=== PATIENT | male | born 1980 | race Caucasian/White ===

== ENCOUNTER → 2017-07-18 | Emergency (ER) | payer BC ==
[~2017-07-18] MED LIST: Ativan 2 MG/1 ML VIAL ONE; Lactated Ringers 1,000 ML IV ONE; Sodium Chloride 0.9% 1000 ML 1,000 ML ONE
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
[2017-07-18 20:28] LABS: BASOPHIL % 0.4 % (0.0-0.4); Basophil (Absolute #) 0.03 (0-0.4); Eosinophil % 0.4 % (0.00-5.0); Eosinophil (Absolute #) 0.03 (0-0.5); Granulocyte Absolute (ANC) 5.18 (1.4-6.9); Granulocytes % 75.1 % (36.0-66.0); Hematocrit 40.1 % (42-50); Hemoglobin 13.6 gm/dl (12.5-18.0); Lymphocyte (Absolute #) 1.17 (1.0-4.6); Lymphocytes % 16.9 % (24.0-44.0); Mean Cell Volume 87.2 fl (78-100); Mean Corpuscular Hemoglobin 29.6 pg (26-32); Mean Corpuscular Hgb Concent. 33.9 g/dl (32-36); Mean Platelet Volume 8.6 fl (6-9.5); Monocytes % 7.2 % (0.0-12.0); Platelet Count 296 K/mm3 (150-450); Red Cell Distribution Width 14.5 % (11.5-14.0); White Blood Count 6.9 K/mm3 (4.0-10.5)
[2017-07-18 20:46] LABS: ALBUMIN 4.5 g/dL (3.5-5.0); ANION GAP 14.4 MEQ/L (5-15); BILIRUBIN,TOTAL 0.4 mg/dL (0.2-1.3); Calcium 9.1 mg/dL (8.4-10.2); Creatinine 1 1.57 mg/dL (0.66-1.25); Potassium 3.6 mmol/L (3.5-5.1); Total Protein 7.6 g/dL (6.3-8.2)
[2017-07-18 22:06] VITALS: BP 153/73; PULSE 134; O2SAT 97
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
== END | disposition short-term general hospital (02) ==
LOC: ED 19:42
DX: Z86.19 Personal history of other infectious and parasitic diseases (principal); S80.811A Abrasion, right lower leg, initial encounter; Z85.6 Personal history of leukemia; Z86.69 Personal history of other diseases of the nervous system and sense organs; V43.52XA Car driver injured in collision with other type car in traffic accident, initial encounter
CPT/HCPCS: 36000; 36415; 70450; 71045; 72125; 80053; 80177; 82150; 82962; 83690; 85025; 93005; 96360; 96361; 99284; 99285; J2060

== ENCOUNTER 2021-10-19 17:25 | Emergency (ER) | payer BC ==
[2021-10-19] MEDS ORDERED: Sodium Chloride 0.9% 1000 ML 1,000 ML IV SCH (17:45)
[2021-10-19] MEDS ORDERED: Sodium Chloride 0.9% 1000 ML 1,000 ML ONE (17:51)
[2021-10-19 17:54] LABS: Absolute Neutrophil Ct (ANC) 2.52 x10^3/uL (1.4-6.9); Basophil (Absolute #) 0.02 x10^3/uL (0-0.4); Eosinophil % 1.9 % (0.00-5.0); Eosinophil (Absolute #) 0.08 x10^3/uL (0-0.5); Hematocrit 34.6 % (42-50); Hemoglobin 11.8 g/dL (12.5-18.0); Lymphocyte (Absolute #) 1.46 x10^3/uL (1.0-4.6); Lymphocytes % 34.2 % (24.0-44.0); Mean Cell Volume 86.1 fL (78-100); Mean Corpuscular Hemoglobin 29.4 pg (26-32); Mean Corpuscular Hgb Concent. 34.1 g/dL (32-36); Mean Platelet Volume 9.1 fL (7.5-11.0); Monocyte (Absolute #) 0.18 x10^3/uL (0.0-1.3); Monocytes % 4.2 % (0.0-12.0); Platelet Count 218 x10^3/uL (150-450); Red Blood Count 4.02 x10^6/uL (4.1-5.6); Red Cell Distribution Width 13.7 % (11.5-14.0); White Blood Count 4.3 x10^3/uL (4.0-10.5)
[2021-10-19 18:12] LABS: ALBUMIN 4.5 g/dL (3.5-5.0); ALKALINE PHOSPHATASE 59 U/L (38-126); ANION GAP 16.1 MEQ/L (5-15); BLOOD UREA NITROGEN 23 mg/dL (9-20); CHLORIDE 93 mmol/L (98-107); Calcium 8.6 mg/dL (8.4-10.2); Carbon Dioxide 23 mmol/L (22-30); Creatinine 1 1.03 mg/dL (0.66-1.25); EST GLOMERULAR FILTRATION RATE > 60.0 ML/MIN; Glucose 95 mg/dL (74-106); Potassium 4.5 mmol/L (3.5-5.1); SGOT/AST 101 U/L (17-59); SGPT/ALT 45 U/L (0-50); SODIUM 127 mmol/L (137-145); Total Protein 7.6 g/dL (6.3-8.2)
--- NOTE | 2021-10-19 18:31 | ERPHSYRPT ---
- History of Present Illness Time Seen by Provider: 10/19/21 17:40 Patient Subjective Stated Complaint: pt states "I had a seizure at work. 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 His last convulsive seizure was approximately 23 months ago. He did have an absence seizure approximately 10 months ago. During this episode he was noted by his coworkers to have hit his head very h joel. He is not on any blood thinners. In fact his only medication is Keppra at a dose of 1750 twice daily he denies any headache at present. His employer did demand any exam before he returns to work. He is followed by neurologist in [place] at [facility] Timing/Duration: today Severity: severe Character of Deficits: none Baseline/Normal Cognition: alert oriented x 3 Current Cognition: alert oriented x 3 Baseline Gait: walks w/o assistance Associated Symptoms: seizures Allergies/Adverse Reactions: No Known Drug Allergies Allergy (Verified 07/18/17 19:58) Home Medications: Levetiracetam [Keppra 500 mg ] 1,750 mg PO BID 03/14/16 [History] Hx Tetanus, Diphtheria Vaccination/Date Given: Yes Hx Influenza Vaccination/Date Given: Yes Hx Pneumococcal Vaccination/Date Given: No Travel Risk - International Travel Have you traveled outside of the country in past 3 weeks: No - Coronavirus Screening Are you exhibiting any of the following symptoms?: No Close contact with a COVID-19 positive Pt in past 14-21 Days: No - Vaccine Status Have you recieved a Covid-19 vaccination: Yes Public Health Analyst: Moderna - Vaccination Dates Date of 2cond Vaccination (if applicable): 07/08 - Review of Systems Constitutional: No Fever, No Chills Eyes: No Symptoms Ears, Nose, & Throat: No Symptoms Respiratory: No Cough, No Dyspnea Cardiac: No Chest Pain, No Edema, No Syncope Abdominal/Gastrointestinal: No Abdominal Pain, No Nausea, No Vomiting, No Diarrhea Genitourinary Symptoms: No Dysuria Musculoskeletal: No Back Pain, No Neck Pain Skin: No Rash Neurological: Seizure, No Dizziness, No Focal Weakness, No Sensory Changes Psychological: No Symptoms Endocrine: No Symptoms All Other Systems: Reviewed and Negative - Past Medical History Pertinent Past Medical History: Yes Neurological History: Seizures ENT History: No Pertinent History Cardiac History: Other Respiratory History: No Pertinent History Endocrine Medical History: No Pertinent History Musculoskeletal History: No Pertinent History GI Medical History: Hepatitis History: No Pertinent History Psycho-Social History: No Pertinent History Male Reproductive Disorders: No Pertinent History Other Medical History: HEP C, ACUTE LYMPHOCYTIC LEUKEMIA, former kidney problems. lt foot fx - Past Surgical History Past Surgical History: No Neuro Surgical History: Neurological Surgery Other Surgical History: brain tumor removed, central lines placed - Social History Smoking Status: Never smoker Exposure to second hand smoke: No Drug Use: none Patient Lives Alone: No - Nursing Vital Signs Nursing Vital Signs: Initial Vital Signs Temperature 97 F 10/19/21 17:31 Pulse Rate 99 H 10/19/21 17:31 Respiratory Rate 18 10/19/21 17:31 Blood Pressure 135/77 10/19/21 17:31 O2 Sat by Pulse Oximetry 100 10/19/21 17:31 Pain Scale Pain Intensity 0 - Consuelo Coma Scale Best Eye Response (Consuelo): (4) open spontaneously Best Verbal Response (Consuelo): (5) oriented Best Motor Response (Consuelo): (6) obeys commands Strong Total: 15 - Physical Exam General Appearance: no apparent distress, alert Eye Exam: bilateral eye: PERRL, EOMI Ears, Nose, Throat Exam: normal ENT inspection, moist mucous membranes Neck Exam: normal inspection, non-tender, supple Respiratory: normal breath sounds, lungs clear, airway intact, No respiratory distress Cardiovascular: regular rate/rhythm, murmur (There is a pulmonic stenotic murmur upper right sternal border 3/6), No edema Gastrointestinal: soft, No tenderness, No distention Back Exam: normal inspection Extremity Exam: normal inspection, No pedal edema Mental Status: alert, 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 Exam: normal hearing, normal speech, PERRL, tongue midline Coordination/Gait: normal finger to nose, normal gait Motor/Sensory: no motor deficit, no sensory deficit Skin Exam: normal color, warm, dry, No rash SpO2 Interpretation: normal SpO2: 100 O2 Delivery: Room Air - Course Nursing assessment & vital signs reviewed: Yes Ordered Tests: Active Orders 24 hr Category Date Time Status IV Insertion STAT Care 10/19/21 17:33 Active Seizure Precautions -SCCHED STAT Care 10/19/21 17:33 Active HEAD WITHOUT CONTRAST [CT] Stat Exams 10/19/21 17:34 Taken CBC W DIFF Stat Lab 10/19/21 17:40 Completed CMP Stat Lab 10/19/21 17:40 Completed Lactic Acid Stat Lab 10/19/21 17:33 Completed Lactic Acid Stat Lab 10/19/21 19:47 Completed UA W/RFX CULTURE Stat Lab 10/19/21 18:21 Completed Medication Summary Generic Name Dose Route Start Last Admin Trade Name Freq PRN Reason Stop Dose Admin Sodium Chloride 1,000 mls @ 100 mls/hr 10/19/21 17:45 10/19/21 17:52 Sodium Chloride 0.9% 1000 Ml IV 11/18/21 17:44 100 mls/hr .Q10H MAMIE Administration Discontinued Medications Generic Name Dose Route Start Last Admin Trade Name Freq PRN Reason Stop Dose Admin Levetiracetam 1,000 mg/ 110 mls @ 220 mls/hr 10/19/21 19:17 10/19/21 19:27 Dextrose IV 10/19/21 19:46 220 mls/hr STAT ONE Administration Levetiracetam 1,750 mg/ 117.5 mls @ 220 mls/hr 10/19/21 19:19 10/19/21 19:26 Dextrose IV 10/19/21 19:51 Not Given STAT ONE Sodium Chloride Confirm 10/19/21 19:21 Sodium Chloride 0.9% Administered 10/19/21 19:22 Dose 100 mls @ ud .ROUTE .STK-MED ONE Dextrose Confirm 10/19/21 19:23 D5w 100ml Mini Bag 100 Ml Administered 10/19/21 19:24 Dose 100 mls @ ud IV .STK-MED ONE Levetiracetam 750 mg/ Dextrose 107.5 mls @ 400 mls/hr 10/19/21 19:35 10/19/21 19:51 IV 10/19/21 19:51 400 mls/hr STAT ONE Administration Dextrose Confirm 10/19/21 19:37 D5w 100ml Mini Bag 100 Ml Administered 10/19/21 19:38 Dose 100 mls @ ud IV .STK-MED ONE Levetiracetam Confirm 10/19/21 19:20 Levetiracetam 500 Mg/5 Ml Vial Administered 10/19/21 19:21 Dose 1,000 mg .ROUTE .STK-MED ONE Levetiracetam Confirm 10/19/21 19:37 Levetiracetam 500 Mg/5 Ml Vial Administered 10/19/21 19:38 Dose 1,000 mg .ROUTE .STK-MED ONE Lorazepam 1 mg 10/19/21 19:06 10/19/21 19:14 Lorazepam 2 Mg/1 Ml 2 Mg Vial IV 10/19/21 19:07 1 mg STAT ONE Administration Lorazepam Confirm 10/19/21 19:06 Lorazepam 2 Mg/1 Ml 2 Mg Vial Administered 10/19/21 19:07 Dose 2 mg .ROUTE .STK-MED ONE Lab/Rad Data: Laboratory Result Diagrams 10/19/21 17:40 10/19/21 17:40 Laboratory Results 10/19/21 10/19/21 10/19/21 Range/Units 19:47 18:21 17:40 WBC (4.0-10.5) x10^3/uL RBC (4.1-5.6) x10^6/uL Hgb (12.5-18.0) g/dL Hct (42-50) % MCV (78-100) fL MCH (26-32) pg MCHC (32-36) g/dL RDW (11.5-14.0) % Plt Count (150-450) x10^3/uL MPV (7.5-11.0) fL Gran % (36.0-66.0) % Immature Gran % (Auto) (0.00-0.4) % Nucleat RBC Rel Count (0.00-0.1) % Eos # (Auto) (0-0.5) x10^3/uL Immature Gran # (Auto) (0.00-0.03) x10^3u/L Absolute Lymphs (auto) (1.0-4.6) x10^3/uL Absolute Monos (auto) (0.0-1.3) x10^3/uL Absolute Nucleated RBC (0.00-0.01) x10^3u/L Lymphocytes % (24.0-44.0) % Monocytes % (0.0-12.0) % Eosinophils % (0.00-5.0) % Basophils % (0.0-0.4) % Absolute Granulocytes (1.4-6.9) x10^3/uL Basophils # (0-0.4) x10^3/uL Sodium 127 L (137-145) mmol/L Potassium 4.5 (3.5-5.1) mmol/L Chloride 93 L (98-107) mmol/L Carbon Dioxide 23 (22-30) mmol/L Anion Gap 16.1 H (5-15) MEQ/L BUN 23 H (9-20) mg/dL Creatinine 1.03 (0.66-1.25) mg/dL Estimated GFR > 60.0 ML/MIN Glucose 95 (74-106) mg/dL Lactic Acid 5.1 H (0.4-2.0) Calcium 8.6 (8.4-10.2) mg/dL Total Bilirubin 0.70 (0.2-1.3) mg/dL AST 101 H (17-59) U/L ALT 45 (0-50) U/L Alkaline Phosphatase 59 (38-126) U/L Serum Total Protein 7.6 (6.3-8.2) g/dL Albumin 4.5 (3.5-5.0) g/dL Urinalys Dipstick Clnc MAIN LAB Urine Color YELLOW (YELLOW) Urine Appearance CLEAR (CLEAR) Urine pH 7.0 (5-6) Ur Specific [place] 1.025 (1.005-1.025) POC Urine Protein Conf NEGATIVE (Negative) Urine Ketones NEGATIVE (NEGATIVE) Urine Nitrite NEGATIVE (NEGATIVE) Urine Bilirubin NEGATIVE (NEGATIVE) Urine Urobilinogen 0.2 (0-1) mg/dL Urine Leukocytes NEGATIVE (NEGATIVE) Urine WBC (Auto) NONE (0-5) /HPF Urine RBC (Auto) NONE (0-2) /HPF U Epithel Cells (Auto) NONE (FEW) /HPF Urine Bacteria (Auto) NONE (NEGATIVE) /HPF Urine RBC TRACE-INTACT (0-5) Marcus/ul Ur Culture Indicated? NO Urine Glucose NEGATIVE (NEGATIVE) mg/dL 10/19/21 10/19/21 Range/Units 17:40 17:33 WBC 4.3 (4.0-10.5) x10^3/uL RBC 4.02 L (4.1-5.6) x10^6/uL Hgb 11.8 L (12.5-18.0) g/dL Hct 34.6 L (42-50) % MCV 86.1 (78-100) fL MCH 29.4 (26-32) pg MCHC 34.1 (32-36) g/dL RDW 13.7 (11.5-14.0) % Plt Count 218 (150-450) x10^3/uL MPV 9.1 (7.5-11.0) fL Gran % 59.0 (36.0-66.0) % Immature Gran % (Auto) 0.2 (0.00-0.4) % Nucleat RBC Rel Count 0.0 (0.00-0.1) % Eos # (Auto) 0.08 (0-0.5) x10^3/uL Immature Gran # (Auto) 0.01 (0.00-0.03) x10^3u/L Absolute Lymphs (auto) 1.46 (1.0-4.6) x10^3/uL Absolute Monos (auto) 0.18 (0.0-1.3) x10^3/uL Absolute Nucleated RBC 0.00 (0.00-0.01) x10^3u/L Lymphocytes % 34.2 (24.0-44.0) % Monocytes % 4.2 (0.0-12.0) % Eosinophils % 1.9 (0.00-5.0) % Basophils % 0.5 (0.0-0.4) % Absolute Granulocytes 2.52 (1.4-6.9) x10^3/uL Basophils # 0.02 (0-0.4) x10^3/uL Sodium (137-145) mmol/L Potassium (3.5-5.1) mmol/L Chloride (98-107) mmol/L Carbon Dioxide (22-30) mmol/L Anion Gap (5-15) MEQ/L BUN (9-20) mg/dL Creatinine (0.66-1.25) mg/dL Estimated GFR ML/MIN Glucose (74-106) mg/dL Lactic Acid 2.3 H (0.4-2.0) Calcium (8.4-10.2) mg/dL Total Bilirubin (0.2-1.3) mg/dL AST (17-59) U/L ALT (0-50) U/L Alkaline Phosphatase (38-126) U/L Serum Total Protein (6.3-8.2) g/dL Albumin (3.5-5.0) g/dL Urinalys Dipstick Clnc Urine Color (YELLOW) Urine Appearance (CLEAR) Urine pH (5-6) Ur Specific [place] (1.005-1.025) POC Urine Protein Conf (Negative) Urine Ketones (NEGATIVE) Urine Nitrite (NEGATIVE) Urine Bilirubin (NEGATIVE) Urine Urobilinogen (0-1) mg/dL Urine Leukocytes (NEGATIVE) Urine WBC (Auto) (0-5) /HPF Urine RBC (Auto) (0-2) /HPF U Epithel Cells (Auto) (FEW) /HPF Urine Bacteria (Auto) (NEGATIVE) /HPF Urine RBC (0-5) Marcus/ul Ur Culture Indicated? Urine Glucose (NEGATIVE) mg/dL - Progress Progress: improved Progress Note: 10/19/21 21:19 Patient presented after a seizure at work and initially was doing well here in the ER and then had another grand mal seizure which lasted for several minutes. He was treated for that with Ativan at and was given 2 g of Keppra IV this evening. We did call Tati Finn the resident on-call for neurology at [facility] and she reviewed his chart and recommended the increase in his dose of Keppra to 2 g twice a day and she will discuss that with Dr. Goff tomorrow. - Departure Departure Disposition: Home Clinical Impression: Seizure disorder Condition: Stable Critical Care Time: No Referrals: MELITA CRAWFORD NP [Primary Care Provider] - Follow up/PCP as directed Instructions: Seizures, Adult (DC) Additional Instructions: Increase the daily Keppra dose to 2 g twice a day
[2021-10-19] MEDS ORDERED: Ativan 2 MG/1 ML VIAL ONE (19:06)
[2021-10-19] MEDS ORDERED: Ativan 2 MG/1 ML VIAL IV ONE (19:06)
[2021-10-19] MEDS ORDERED: Keppra 500 MG/5 ML*** 1,000 MG in D5w 100ML Mini Bag 100 ML 100 ML IV ONE (19:17)
[2021-10-19] MEDS ORDERED: KEPPRA IV ONE ×3 (19:19→21:26)
[2021-10-19] MEDS ORDERED: D5W MINI IV ONE ×3 (19:19→21:26)
[2021-10-19] MEDS ORDERED: Keppra 500 MG/5 ML ONE ×2 (19:20→19:37)
[2021-10-19] MEDS ORDERED: Sodium Chloride 0.9% 0 ML ONE (19:21)
[2021-10-19] MEDS ORDERED: D5w 100ML Mini Bag 100 ML 100 ML IV ONE ×3 (19:23→21:26)
[2021-10-19 19:42] LABS: Appearance CLEAR (CLEAR)
[2021-10-19 19:43] LABS: Bilirubin NEGATIVE (NEGATIVE); Dipstick done @ ? MAIN LAB; Glucose NEGATIVE (NEGATIVE); Ketones NEGATIVE (NEGATIVE); Nitrite NEGATIVE (NEGATIVE); Protein,Urine Dip NEGATIVE (Negative); RBC TRACE-INTACT Ery/ul (0-5); Specific Gravity 1.025 (1.005-1.025); Urobilinogen 0.2 mg/dL (0-1)
[2021-10-19 19:48] LABS: Urine Cultured Indicated? NO
[2021-10-19] MEDS ORDERED: Keppra 250 MG ONE (21:25)
[2021-10-19 22:16] VITALS: BP 126/84; PULSE 92; O2SAT 98
--- NOTE | 2021-10-20 08:42 | XRAY ---
Indication: Head injury. Seizure. Benign brain tumors 2016 with surgery. Multiple contiguous axial images obtained through the head without contrast. Comparison: July 18, 2017 There has been additional interval right temporal craniectomy with increasing underlying temporal lobe postsurgical encephalomalacia. Stable right parietal craniotomy. No acute intracranial hemorrhage, hydrocephalus, or mass effect. Fourth ventricle is midline. [place]-white matter differentiation preserved. Remaining bony calvarium intact. Visualized paranasal sinuses and mastoid air cells are clear. Impression: Right temporal craniectomy with underlying encephalomalacia and right parietal craniotomy. No acute intracranial abnormalities.
== END 2021-10-19 22:15 | disposition home or self-care (01) ==
LOC: ED 17:25
DX: G40.909 Epilepsy, unspecified, not intractable, without status epilepticus (principal); Z79.899 Other long term (current) drug therapy
CPT/HCPCS: 36000; 36415; 70450; 80053; 80177; 81015; 83605; 84146; 85025; 96374; 96375; 96376; 99284; J1953; J2060; A9270-GY

== ENCOUNTER 2022-04-06 22:35 | Observation (INO) | payer BC ==
[2022-04-06] MEDS ORDERED: Hydromorphone 1 mg/ml Injection IV ONE (22:45)
[2022-04-06] MEDS ORDERED: Zofran 4 MG/2 ML VIAL IV ONE (22:46)
[2022-04-06] MEDS ORDERED: Zofran 4 MG/2 ML VIAL ONE (22:49)
[2022-04-06] MEDS ORDERED: Hydromorphone 1 mg/ml Injection ONE (22:50)
--- NOTE | 2022-04-06 23:23 | ERPHSYRPT ---
- History of Present Illness Historian: patient, other () Exam Limitations: no limitations Patient Subjective Stated Complaint: pt states I have had this pain for the past 4 hours. I get relief if I lay on my left side Triage Nursing Assessment: pt ambulated into the er; pt is axo x4; pt is moaning and yelling out; c/o epigastric pain; pt states 5/10 pain to epigastric region; abd is soft, tender; active bowel sounds in all quads; tachycardic; skin PDW; no respiratory distress present Physician History: 41 yo wf w generalized abdominal pain since 18:30 today after eating [place] food. Pain is described as pressure, 7 out of 10, and L lateral decubitus position makes it better. He denies nausea/vomiting/diaphoresis but was dyspneic. He and his had diarrhea on Monday which seemed to resolve. Fever/cough/melena/hematochezia/dysuria/hematuria are all denied. Appendix/gallbladder are still present. 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 Pt has also had meningioma resection x2. Timing/Duration: other (183) Quality: pressure Abdominal Pain Onset Location: generalized abdomen Pain Radiation: no radiation Severity of Pain-Max: severe Severity of Pain-Current: moderate Modifying Factors: Improves With: nothing Associated Symptoms: denies symptoms Previous symptoms: no prior history Allergies/Adverse Reactions: azithromycin [From Zithromax Z-Uday] Allergy (Verified 04/06/22 22:37) Hives lamotrigine [From Lamictal] Allergy (Verified 04/07/22 02:53) Rash Home Medications: Levetiracetam [Keppra 500 mg ] 2,000 mg PO BID 03/14/16 [History] Testosterone 1.62 gm TD DAILY 04/07/22 [History] Hx Tetanus, Diphtheria Vaccination/Date Given: Yes Hx Influenza Vaccination/Date Given: No Hx Pneumococcal Vaccination/Date Given: No Travel Risk - International Travel Have you traveled outside of the country in past 3 weeks: No - Coronavirus Screening Are you exhibiting any of the following symptoms?: No Close contact with a COVID-19 positive Pt in past 14-21 Days: No - Vaccine Status Have you recieved a Covid-19 vaccination: Yes Acid Patroller: Moderna - Vaccination Dates Date of 2cond Vaccination (if applicable): 07/08 - Review of Systems Constitutional: No Symptoms Eyes: No Symptoms Ears, Nose, & Throat: No Symptoms Respiratory: No Symptoms Cardiac: No Symptoms Abdominal/Gastrointestinal: No Symptoms, Abdominal Pain, No Nausea, No Vomiting, No Diarrhea, No Constipation, No Hematemesis, No Hematochezia, No Melena, No Dysphagia, No Appetite Changes Genitourinary Symptoms: No Symptoms Musculoskeletal: No Symptoms Skin: No Symptoms Neurological: No Symptoms Psychological: No Symptoms Endocrine: No Symptoms Hematologic/Lymphatic: No Symptoms Immunological/Allergic: No Symptoms - Past Medical History Pertinent Past Medical History: Yes Neurological History: Seizures ENT History: No Pertinent History Cardiac History: Other Respiratory History: No Pertinent History Endocrine Medical History: No Pertinent History Musculoskeletal History: No Pertinent History GI Medical History: Hepatitis History: No Pertinent History Psycho-Social History: No Pertinent History Male Reproductive Disorders: No Pertinent History Other Medical History: HEP C, ACUTE LYMPHOCYTIC LEUKEMIA, former kidney problems. lt foot fx - Past Surgical History Past Surgical History: No Neuro Surgical History: Neurological Surgery Other Surgical History: brain tumor removed, central lines placed - Social History Smoking Status: Never smoker Exposure to second hand smoke: No Drug Use: none Patient Lives Alone: No Significant Family History: no pertinent family hx - Nursing Vital Signs Nursing Vital Signs: Initial Vital Signs Pulse Rate 116 H 04/06/22 22:36 Respiratory Rate 24 04/06/22 22:36 Blood Pressure 113/88 04/06/22 22:36 O2 Sat by Pulse Oximetry 100 04/06/22 22:36 Pain Scale Pain Intensity 2 Tachy/tachypneic - Physical Exam General Appearance: no apparent distress (In pain) Eye Exam: PERRL/EOMI, eyes nml inspection Ears, Nose, Throat Exam: normal ENT inspection, TMs normal, pharynx normal, moist mucous membranes Neck Exam: normal inspection, non-tender, supple, full range of motion, No meningismus, No mass, No Brudzinski, No Kernig's Respiratory Exam: normal breath sounds, lungs clear, airway intact, No respiratory distress Cardiovascular Exam: murmur (3/6 SOFYA), tachycardia, capillary refill <2 sec Gastrointestinal/Abdomen Exam: soft, normal bowel sounds, tenderness (Marked epigastric TTP wo guarding or rebound) Back Exam: normal inspection, normal range of motion, No CVA tenderness Extremity Exam: normal inspection, normal range of motion Neurologic Exam: alert, oriented x 3, cooperative, support assistant II-XII nml as tested, normal mood/affect, nml cerebellar function, nml station & gait, sensation nml Skin Exam: normal color, warm, dry Lymphatic Exam: No adenopathy SpO2 Interpretation: normal SpO2: 100 O2 Delivery: Room Air - Course Nursing assessment & vital signs reviewed: Yes EKG Interpreted by Me: RATE (Sinus tach/Rate 118/RBBB/No acute ST segment changes) - Radiology Exams Chest X-ray Interpretation: Interpreted by me (CXR neg per ER read) - CT Exams Abdomen/Pelvis CT Interpretation: Tele-radiologist Report (Mild periportal edema) Ordered Tests: Active Orders 24 hr Category Date Time Status Senior Data Mining Analyst STAT Care 04/06/22 22:52 Completed EKG-ER Only STAT Care 04/06/22 22:43 Completed IV Insertion STAT Care 04/06/22 22:43 Completed NPO Diet 04/07/22 02:01 Active ABDOMEN AND PELVIS W CONTRAST [CT] Stat Exams 04/07/22 00:06 Taken CHEST 1 VIEW (PORTABLE) Stat Exams 04/06/22 23:28 Taken GALLBLADDER [US] Stat Exams 04/07/22 07:04 Stop Req AMYLASE Stat Lab 04/06/22 23:25 Completed CBC W DIFF AM.LAB Lab 04/07/22 04:00 Ordered CBC W DIFF Stat Lab 04/06/22 23:25 Completed CMP AM.LAB Lab 04/07/22 04:00 Ordered CMP Stat Lab 04/06/22 23:25 Completed CULTURE,URINE Stat Lab 04/07/22 01:49 Received LIPASE Stat Lab 04/06/22 23:25 Completed TROPONIN Q4H Lab 04/06/22 23:25 Completed TROPONIN Q4H Lab 04/07/22 00:05 Completed TROPONIN Q4H Lab 04/07/22 06:45 Ordered UA W/RFX UR CULTURE Stat Lab 04/07/22 01:49 Completed Transfer Order Routine Transfer 04/07/22 Completed Medication Summary Generic Name Dose Route Start Last Admin Trade Name Freq PRN Reason Stop Dose Admin Hydromorphone HCl 1 mg 04/07/22 02:00 Hydromorphone 1 Mg/1ml Inj 1 Mg/Ml Syringe IV 04/12/22 01:59 Q4H PRN PRN PAIN Sodium Chloride 1,000 mls @ 100 mls/hr 04/07/22 02:00 04/07/22 03:09 Sodium Chloride 0.9% 1000 Ml IV 05/07/22 01:59 100 mls/hr .Q10H MAMIE Administration Ondansetron HCl 4 mg 04/07/22 02:00 Ondansetron Hcl 4 Mg/2 Ml Vial IV 05/07/22 01:59 Q6H PRN PRN NAUSEA/VOMITING Discontinued Medications Generic Name Dose Route Start Last Admin Trade Name Freq PRN Reason Stop Dose Admin Hydromorphone HCl 1 mg 04/06/22 22:45 04/06/22 22:53 Hydromorphone 1 Mg/1ml Inj 1 Mg/Ml Syringe IV 04/06/22 22:46 1 mg STAT ONE Administration Hydromorphone HCl Confirm 04/06/22 22:50 Hydromorphone 1 Mg/1ml Inj 1 Mg/Ml Syringe Administered 04/06/22 22:51 Dose 1 mg .ROUTE .STK-MED ONE Hydromorphone HCl 1 mg 04/07/22 01:29 04/07/22 01:39 Hydromorphone 1 Mg/1ml Inj 1 Mg/Ml Syringe IV 04/07/22 01:30 1 mg STAT ONE Administration Hydromorphone HCl Confirm 04/07/22 01:37 Hydromorphone 1 Mg/1ml Inj 1 Mg/Ml Syringe Administered 04/07/22 01:38 Dose 1 mg .ROUTE .STK-MED ONE Ondansetron HCl 4 mg 04/06/22 22:46 04/06/22 22:54 Ondansetron Hcl 4 Mg/2 Ml Vial IV 04/06/22 22:47 4 mg STAT ONE Administration Ondansetron HCl Confirm 04/06/22 22:49 Ondansetron Hcl 4 Mg/2 Ml Vial Administered 04/06/22 22:50 Dose 4 mg .ROUTE .STK-MED ONE Lab/Rad Data: Laboratory Result Diagrams 04/06/22 23:25 04/06/22 23:25 Laboratory Results 01/04/07/22 04/06/22 Range/Units 01:49 00:05 23:56 WBC (4.0-10.5) x10^3/uL RBC (4.1-5.6) x10^6/uL Hgb (12.5-18.0) g/dL Hct (42-50) % MCV (78-100) fL MCH (26-32) pg MCHC (32-36) g/dL RDW (11.5-14.0) % Plt Count (150-450) x10^3/uL MPV (7.5-11.0) fL Gran % (36.0-66.0) % Immature Gran % (Auto) (0.00-0.4) % Nucleat RBC Rel Count (0.00-0.1) % Eos # (Auto) (0-0.5) x10^3/uL Immature Gran # (Auto) (0.00-0.03) x10^3u/L Absolute Lymphs (auto) (1.0-4.6) x10^3/uL Absolute Monos (auto) (0.0-1.3) x10^3/uL Absolute Nucleated RBC (0.00-0.01) x10^3u/L Lymphocytes % (24.0-44.0) % Monocytes % (0.0-12.0) % Eosinophils % (0.00-5.0) % Basophils % (0.0-0.4) % Absolute Granulocytes (1.4-6.9) x10^3/uL Basophils # (0-0.4) x10^3/uL Sodium (137-145) mmol/L Potassium (3.5-5.1) mmol/L Chloride (98-107) mmol/L Carbon Dioxide (22-30) mmol/L Anion Gap (5-15) MEQ/L BUN (9-20) mg/dL Creatinine (0.66-1.25) mg/dL Estimated GFR ML/MIN Glucose (74-106) mg/dL Calcium (8.4-10.2) mg/dL Total Bilirubin (0.2-1.3) mg/dL AST (17-59) U/L ALT (0-50) U/L Alkaline Phosphatase (38-126) U/L Troponin I < 0.012 (0.000-0.034) ng/mL Serum Total Protein (6.3-8.2) g/dL Albumin (3.5-5.0) g/dL Amylase (30-110) U/L Lipase (23-300) U/L Urine Color Yellow (Yellow) Urine Appearance Clear (Clear) Urine pH 7.5 (4.6-8.0) Ur Specific [place] >=1.030 A (1.005-1.030) Urine Protein Negative (Negative) Urine Glucose (UA) Negative (Negative) mg/dL Urine Ketones Negative (Negative) Urine Blood Negative (Negative) Urine Nitrite Negative (Negative) Urine Bilirubin Negative (Negative) Urine Urobilinogen 0.2 (0.2) mg/dL Ur Leukocyte Esterase Negative (Negative) U Hyaline Cast (Auto) NONE SEEN (0-2) /LPF Urine Microscopic RBC 3-5 (0-5) /HPF Urine Microscopic WBC 11-20 A (0-5) /HPF Ur Epithelial Cells None Seen (None Seen) /HPF Urine Bacteria None Seen (None Seen) /HPF Urine Culture Reflexed YES (NO) Influenza Type A Ag NEGATIVE (NEGATIVE) Influenza Type B Ag NEGATIVE (NEGATIVE) RSV (PCR) NEGATIVE (Negative) SARS-CoV-2 (PCR) NEGATIVE (NEGATIVE) Slides for Path Review 04/06/22 04/06/22 04/06/22 Range/Units 23:25 23:25 23:25 WBC 6.9 (4.0-10.5) x10^3/uL RBC 4.32 (4.1-5.6) x10^6/uL Hgb 12.4 L (12.5-18.0) g/dL Hct 37.2 L (42-50) % MCV 86.1 (78-100) fL MCH 28.7 (26-32) pg MCHC 33.3 (32-36) g/dL RDW 13.6 (11.5-14.0) % Plt Count 228 (150-450) x10^3/uL MPV 8.8 (7.5-11.0) fL Gran % 88.4 H (36.0-66.0) % Immature Gran % (Auto) 0.3 (0.00-0.4) % Nucleat RBC Rel Count 0.0 (0.00-0.1) % Eos # (Auto) 0.05 (0-0.5) x10^3/uL Immature Gran # (Auto) 0.02 (0.00-0.03) x10^3u/L Absolute Lymphs (auto) 0.53 L (1.0-4.6) x10^3/uL Absolute Monos (auto) 0.18 (0.0-1.3) x10^3/uL Absolute Nucleated RBC 0.00 (0.00-0.01) x10^3u/L Lymphocytes % 7.7 L (24.0-44.0) % Monocytes % 2.6 (0.0-12.0) % Eosinophils % 0.7 (0.00-5.0) % Basophils % 0.3 (0.0-0.4) % Absolute Granulocytes 6.09 (1.4-6.9) x10^3/uL Basophils # 0.02 (0-0.4) x10^3/uL Sodium 137 (137-145) mmol/L Potassium 3.5 (3.5-5.1) mmol/L Chloride 103 (98-107) mmol/L Carbon Dioxide 26 (22-30) mmol/L Anion Gap 11.4 (5-15) MEQ/L BUN 19 (9-20) mg/dL Creatinine 0.76 (0.66-1.25) mg/dL Estimated GFR > 60.0 ML/MIN Glucose 100 (74-106) mg/dL Calcium 8.6 (8.4-10.2) mg/dL Total Bilirubin 0.50 (0.2-1.3) mg/dL AST 209 H (17-59) U/L ALT 87 H (0-50) U/L Alkaline Phosphatase 128 H (38-126) U/L Troponin I < 0.012 (0.000-0.034) ng/mL Serum Total Protein 7.4 (6.3-8.2) g/dL Albumin 4.4 (3.5-5.0) g/dL Amylase 58 (30-110) U/L Lipase 88 (23-300) U/L Urine Color (Yellow) Urine Appearance (Clear) Urine pH (4.6-8.0) Ur Specific [place] (1.005-1.030) Urine Protein (Negative) Urine Glucose (UA) (Negative) mg/dL Urine Ketones (Negative) Urine Blood (Negative) Urine Nitrite (Negative) Urine Bilirubin (Negative) Urine Urobilinogen (0.2) mg/dL Ur Leukocyte Esterase (Negative) U Hyaline Cast (Auto) (0-2) /LPF Urine Microscopic RBC (0-5) /HPF Urine Microscopic WBC (0-5) /HPF Ur Epithelial Cells (None Seen) /HPF Urine Bacteria (None Seen) /HPF Urine Culture Reflexed (NO) Influenza Type A Ag (NEGATIVE) Influenza Type B Ag (NEGATIVE) RSV (PCR) (Negative) SARS-CoV-2 (PCR) (NEGATIVE) Slides for Path Review YES - Progress Progress: improved Progress Note: 04/07/22 03:50 1mg IV dilaudid/4mg IV Zofran w improvement in pain Pain returned and treated effectively w additional 1mg IV dilaudid Pt admitted due to continuing pain and abnormal CT results Dasha-portal edema of unknown etiology Gallbladder WNL on Ct but dedicated US will be obtained Observation per Dr. Link Nursing notes and vital signs reviewed Labs/CT results reviewed and shared w pt/ Additional history per No food or housing insecurities noted Full code upon admit 04/07/22 03:56 Discussed with : Carlos Will see patient in: office Counseled pt/family regarding: lab results, diagnosis, rad results - Departure Departure Disposition: Observation Clinical Impression: Abdominal pain Condition: Stable Critical Care Time: No
[2022-04-06 23:28] LABS: Absolute Neutrophil Ct (ANC) 6.09 x10^3/uL (1.4-6.9); Basophil (Absolute #) 0.02 x10^3/uL (0-0.4); Eosinophil % 0.7 % (0.00-5.0); Eosinophil (Absolute #) 0.05 x10^3/uL (0-0.5); Hematocrit 37.2 % (42-50); Hemoglobin 12.4 g/dL (12.5-18.0); Lymphocyte (Absolute #) 0.53 x10^3/uL (1.0-4.6); Lymphocytes % 7.7 % (24.0-44.0); Mean Cell Volume 86.1 fL (78-100); Mean Corpuscular Hemoglobin 28.7 pg (26-32); Mean Corpuscular Hgb Concent. 33.3 g/dL (32-36); Mean Platelet Volume 8.8 fL (7.5-11.0); Monocyte (Absolute #) 0.18 x10^3/uL (0.0-1.3); Monocytes % 2.6 % (0.0-12.0); Neutrophil % 88.4 % (36.0-66.0); Platelet Count 228 x10^3/uL (150-450); Red Blood Count 4.32 x10^6/uL (4.1-5.6); Red Cell Distribution Width 13.6 % (11.5-14.0); White Blood Count 6.9 x10^3/uL (4.0-10.5)
[2022-04-06 23:41] LABS: ALBUMIN 4.4 g/dL (3.5-5.0); ALKALINE PHOSPHATASE 128 U/L (38-126); AMYLASE 58 U/L (30-110); ANION GAP 11.4 MEQ/L (5-15); BLOOD UREA NITROGEN 19 mg/dL (9-20); CHLORIDE 103 mmol/L (98-107); Calcium 8.6 mg/dL (8.4-10.2); Carbon Dioxide 26 mmol/L (22-30); Creatinine 1 0.76 mg/dL (0.66-1.25); EST GLOMERULAR FILTRATION RATE > 60.0 ML/MIN; Glucose 100 mg/dL (74-106); LIPASE 88 U/L (23-300); Potassium 3.5 mmol/L (3.5-5.1); SGOT/AST 209 U/L (17-59); SGPT/ALT 87 U/L (0-50); SODIUM 137 mmol/L (137-145); Total Protein 7.4 g/dL (6.3-8.2)
[2022-04-07 00:34] LABS: INFLUENZA A NEGATIVE (NEGATIVE); INFLUENZA B NEGATIVE (NEGATIVE); RESPIRATORY SYNCTIAL VIRUS NEGATIVE (Negative); SARS-CoV-2 Xpert Express NEGATIVE (NEGATIVE)
[2022-04-07] MEDS ORDERED: Hydromorphone 1 mg/ml Injection IV ONE (01:29)
[2022-04-07 01:37] LABS: Slide Review 1 YES
[2022-04-07] MEDS ORDERED: Hydromorphone 1 mg/ml Injection ONE (01:37)
[2022-04-07] MEDS ORDERED: Sodium Chloride 0.9% 1000 ML 1,000 ML IV SCH (02:00)
[2022-04-07] MEDS ORDERED: Zofran 4 MG/2 ML VIAL IV PRN (02:00)
[2022-04-07] MEDS ORDERED: Hydromorphone 1 mg/ml Injection IV PRN (02:00)
[2022-04-07 02:07] LABS: Appearance Clear (Clear); Bacteria None Seen /HPF (None Seen); Bilirubin Negative (Negative); Blood Negative (Negative); Epithelial Cells None Seen /HPF (None Seen); Glucose, Urine Negative (Negative); Hyaline Casts NONE SEEN /LPF (0-2); Ketones Negative (Negative); Leukocyte Esterase Negative (Negative); Nitrite Negative (Negative); Ph 7.5 (4.6-8.0); Protein,Urine Dip Negative (Negative); Specific Gravity >=1.030 (1.005-1.030); Urobilinogen 0.2 mg/dL (0.2)
[2022-04-07 02:08] LABS: ADD URINE CULTURE? YES (NO)
[2022-04-07 05:30] LABS: Absolute Neutrophil Ct (ANC) 4.46 x10^3/uL (1.4-6.9); Basophil (Absolute #) 0.03 x10^3/uL (0-0.4); Eosinophil % 0.4 % (0.00-5.0); Eosinophil (Absolute #) 0.02 x10^3/uL (0-0.5); Hematocrit 37.9 % (42-50); Hemoglobin 12.5 g/dL (12.5-18.0); Lymphocyte (Absolute #) 0.65 x10^3/uL (1.0-4.6); Lymphocytes % 11.8 % (24.0-44.0); Mean Cell Volume 85.9 fL (78-100); Mean Corpuscular Hemoglobin 28.3 pg (26-32); Mean Platelet Volume 9.1 fL (7.5-11.0); Monocyte (Absolute #) 0.32 x10^3/uL (0.0-1.3); Monocytes % 5.8 % (0.0-12.0); Neutrophil % 81.3 % (36.0-66.0); Platelet Count 256 x10^3/uL (150-450); Red Blood Count 4.41 x10^6/uL (4.1-5.6); Red Cell Distribution Width 14.2 % (11.5-14.0); White Blood Count 5.5 x10^3/uL (4.0-10.5)
[2022-04-07 06:05] LABS: ALBUMIN 4.3 g/dL (3.5-5.0); ALKALINE PHOSPHATASE 130 U/L (38-126); ANION GAP 11.1 MEQ/L (5-15); BLOOD UREA NITROGEN 15 mg/dL (9-20); CHLORIDE 104 mmol/L (98-107); Calcium 8.1 mg/dL (8.4-10.2); Carbon Dioxide 26 mmol/L (22-30); Creatinine 1 0.74 mg/dL (0.66-1.25); EST GLOMERULAR FILTRATION RATE > 60.0 ML/MIN; Glucose 94 mg/dL (74-106); Potassium 3.9 mmol/L (3.5-5.1); SGOT/AST 224 U/L (17-59); SGPT/ALT 141 U/L (0-50); SODIUM 138 mmol/L (137-145); Total Protein 7.2 g/dL (6.3-8.2)
--- NOTE | 2022-04-07 08:30 | XRAY ---
Indication: Epigastric pain 4 months. Multiple contiguous axial images obtained through the abdomen and pelvis using 80 cc Isovue 370 contrast. Comparison: None Lung bases demonstrates mild left lower lobe subsegmental atelectasis/scarring. Heart not enlarged. Small distal paraesophageal calcified nodes. Noncontrasted stomach and bowel loops appear nonobstructed with normal appendix. Minimal sigmoid diverticulosis without diverticulitis. No free fluid/air. Tiny splenic calcified granulomas. Remaining liver, gallbladder, pancreas, spleen, adrenal glands, kidneys, ureters, bladder, and aorta are normal in CT appearance and attenuation. No pathologic retroperitoneal lymphadenopathy. Osseous structures intact. No ventral or inguinal hernias. Impression: 1. Left lower lobe subsegmental atelectasis/scarring, sigmoid diverticulosis, and old granulomatous disease. 2. Remaining CT abdomen/pelvis with contrast exam is negative. Comment: Preliminary interpretation made by [facility]. No critical discrepancy.
--- NOTE | 2022-04-07 08:32 | XRAY ---
Indication: Epigastric pain. Comparison: July 18, 2017 Portable chest better inflated with new minimal left infrahilar atelectasis/scarring and tiny left lung base calcified granulomas. Remaining heart, lungs, and bony thorax normal.
--- NOTE | 2022-04-07 08:45 | PCM.HP ---
History of Present Illness - Chief Complaint Chief Complaint: ABD PAIN History of Present Illness: is a 41 year old male who presented to the ER with acute onset of epigastric pain, it started quickly after eating [place] food, he had some relief when lying on his left side. his pain has resolved this morning, there was no vomiting, no diarrhea or constipation. he does have some pain and drainage from the right ear. - Review of Systems Constitutional: No Fever, No Chills Ears, Nose, & Throat: Ear Pain Respiratory: No Cough, No Short Of Breath Cardiac: No Chest Pain, No Edema, No Syncope Abdominal/Gastrointestinal: No Abdominal Pain, No Nausea, No Vomiting, No Diarrhea Skin: No Rash Medications & Allergies Home Medications: Home Medication List Levetiracetam [Keppra 500 mg ] 2,000 mg PO BID 03/14/16 [History Confirmed 04/07/22] Testosterone 1.62 gm TD DAILY 04/07/22 [History Confirmed 04/07/22] Allergies/Adverse Reactions: Allergies Allergy/AdvReac Type Severity Reaction Status Date / Time azithromycin Allergy Hives Verified 04/06/22 22:37 [From Zithromax Z-Uday] lamotrigine [From Lamictal] Allergy Rash Verified 04/07/22 02:53 - Past Medical History Past Medical History: Yes Neurological History: Seizures ENT History: No Pertinent History Cardiac History: Other Respiratory History: No Pertinent History Endocrine Medical History: No Pertinent History Musculoskelatal History: No Pertinent History GI Medical History: Hepatitis History: No Pertinent History Pyscho-Social History: No Pertinent History Male Reproductive Disorders: No Pertinent History Comment: HEP C, ACUTE LYMPHOCYTIC LEUKEMIA, former kidney problems. lt foot fx - Past Surgical History Past Surgical History: No Neuro Surgical History: Neurological Surgery Cardiac History: No Pertinent History Respiratory Surgery: No Pertinent History GI Surgical History: No Pertinent History Genitourinary Surgical Hx: No Pertinent History Musculskeletal Surgical Hx: No Pertinent History Male Surgical History: No Pertinent History Other Surgical History: brain tumor removed, central lines placed - Social History Smoking Status: Never smoker Exposure to second hand smoke: No Alcohol: Occasionally Drug Use: none Significant Family History: no pertinent family hx - Physical Exam Vital Signs: Vital Signs - 24 hr Temp Pulse Pulse Resp BP Pulse Ox 04/07/22 07:06 98.4 F 92 H 16 99/53 98 04/07/22 03:56 100 04/07/22 03:19 97.5 F 114 H 20 110/55 96 04/07/22 02:09 114 H 121/73 95 04/07/22 01:00 115 H 18 108/62 98 04/06/22 23:39 118 H 135/83 99 04/06/22 22:36 116 H 112 H 24 113/88 100 General Appearance: no apparent distress, alert Neurologic Exam: alert, oriented x 3 Ears, Nose, Throat Exam: other (rt EAC inflammed with drainage) Respiratory Exam: normal breath sounds, lungs clear, No respiratory distress Cardiovascular Exam: regular rate/rhythm, normal heart sounds, normal peripheral pulses Gastrointestinal/Abdomen Exam: soft, normal bowel sounds, No tenderness, No mass Extremity Exam: normal inspection, normal range of motion, pelvis stable Skin Exam: normal color, warm, dry, No rash Results - Labs Lab/Micro Results: Lab Results-Last 24 Hours 04/06/22 04/06/22 04/06/22 Range/Units 23:25 23:25 23:25 WBC 6.9 (4.0-10.5) x10^3/uL RBC 4.32 (4.1-5.6) x10^6/uL Hgb 12.4 L (12.5-18.0) g/dL Hct 37.2 L (42-50) % MCV 86.1 (78-100) fL MCH 28.7 (26-32) pg MCHC 33.3 (32-36) g/dL RDW 13.6 (11.5-14.0) % Plt Count 228 (150-450) x10^3/uL MPV 8.8 (7.5-11.0) fL Gran % 88.4 H (36.0-66.0) % Immature Gran % (Auto) 0.3 (0.00-0.4) % Nucleat RBC Rel Count 0.0 (0.00-0.1) % Eos # (Auto) 0.05 (0-0.5) x10^3/uL Immature Gran # (Auto) 0.02 (0.00-0.03) x10^3u/L Absolute Lymphs (auto) 0.53 L (1.0-4.6) x10^3/uL Absolute Monos (auto) 0.18 (0.0-1.3) x10^3/uL Absolute Nucleated RBC 0.00 (0.00-0.01) x10^3u/L Lymphocytes % 7.7 L (24.0-44.0) % Monocytes % 2.6 (0.0-12.0) % Eosinophils % 0.7 (0.00-5.0) % Basophils % 0.3 (0.0-0.4) % Absolute Granulocytes 6.09 (1.4-6.9) x10^3/uL Basophils # 0.02 (0-0.4) x10^3/uL Sodium 137 (137-145) mmol/L Potassium 3.5 (3.5-5.1) mmol/L Chloride 103 (98-107) mmol/L Carbon Dioxide 26 (22-30) mmol/L Anion Gap 11.4 (5-15) MEQ/L BUN 19 (9-20) mg/dL Creatinine 0.76 (0.66-1.25) mg/dL Estimated GFR > 60.0 ML/MIN Glucose 100 (74-106) mg/dL Calcium 8.6 (8.4-10.2) mg/dL Total Bilirubin 0.50 (0.2-1.3) mg/dL AST 209 H (17-59) U/L ALT 87 H (0-50) U/L Alkaline Phosphatase 128 H (38-126) U/L Troponin I < 0.012 (0.000-0.034) ng/mL Serum Total Protein 7.4 (6.3-8.2) g/dL Albumin 4.4 (3.5-5.0) g/dL Amylase 58 (30-110) U/L Lipase 88 (23-300) U/L Urine Color (Yellow) Urine Appearance (Clear) Urine pH (4.6-8.0) Ur Specific [place] (1.005-1.030) Urine Protein (Negative) Urine Glucose (UA) (Negative) mg/dL Urine Ketones (Negative) Urine Blood (Negative) Urine Nitrite (Negative) Urine Bilirubin (Negative) Urine Urobilinogen (0.2) mg/dL Ur Leukocyte Esterase (Negative) U Hyaline Cast (Auto) (0-2) /LPF Urine Microscopic RBC (0-5) /HPF Urine Microscopic WBC (0-5) /HPF Ur Epithelial Cells (None Seen) /HPF Urine Bacteria (None Seen) /HPF Urine Culture Reflexed (NO) Influenza Type A Ag (NEGATIVE) Influenza Type B Ag (NEGATIVE) RSV (PCR) (Negative) SARS-CoV-2 (PCR) (NEGATIVE) Slides for Path Review YES 04/06/22 04/07/22 04/07/22 Range/Units 23:56 00:05 01:49 WBC (4.0-10.5) x10^3/uL RBC (4.1-5.6) x10^6/uL Hgb (12.5-18.0) g/dL Hct (42-50) % MCV (78-100) fL MCH (26-32) pg MCHC (32-36) g/dL RDW (11.5-14.0) % Plt Count (150-450) x10^3/uL MPV (7.5-11.0) fL Gran % (36.0-66.0) % Immature Gran % (Auto) (0.00-0.4) % Nucleat RBC Rel Count (0.00-0.1) % Eos # (Auto) (0-0.5) x10^3/uL Immature Gran # (Auto) (0.00-0.03) x10^3u/L Absolute Lymphs (auto) (1.0-4.6) x10^3/uL Absolute Monos (auto) (0.0-1.3) x10^3/uL Absolute Nucleated RBC (0.00-0.01) x10^3u/L Lymphocytes % (24.0-44.0) % Monocytes % (0.0-12.0) % Eosinophils % (0.00-5.0) % Basophils % (0.0-0.4) % Absolute Granulocytes (1.4-6.9) x10^3/uL Basophils # (0-0.4) x10^3/uL Sodium (137-145) mmol/L Potassium (3.5-5.1) mmol/L Chloride (98-107) mmol/L Carbon Dioxide (22-30) mmol/L Anion Gap (5-15) MEQ/L BUN (9-20) mg/dL Creatinine (0.66-1.25) mg/dL Estimated GFR ML/MIN Glucose (74-106) mg/dL Calcium (8.4-10.2) mg/dL Total Bilirubin (0.2-1.3) mg/dL AST (17-59) U/L ALT (0-50) U/L Alkaline Phosphatase (38-126) U/L Troponin I < 0.012 (0.000-0.034) ng/mL Serum Total Protein (6.3-8.2) g/dL Albumin (3.5-5.0) g/dL Amylase (30-110) U/L Lipase (23-300) U/L Urine Color Yellow (Yellow) Urine Appearance Clear (Clear) Urine pH 7.5 (4.6-8.0) Ur Specific [place] >=1.030 A (1.005-1.030) Urine Protein Negative (Negative) Urine Glucose (UA) Negative (Negative) mg/dL Urine Ketones Negative (Negative) Urine Blood Negative (Negative) Urine Nitrite Negative (Negative) Urine Bilirubin Negative (Negative) Urine Urobilinogen 0.2 (0.2) mg/dL Ur Leukocyte Esterase Negative (Negative) U Hyaline Cast (Auto) NONE SEEN (0-2) /LPF Urine Microscopic RBC 3-5 (0-5) /HPF Urine Microscopic WBC 11-20 A (0-5) /HPF Ur Epithelial Cells None Seen (None Seen) /HPF Urine Bacteria None Seen (None Seen) /HPF Urine Culture Reflexed YES (NO) Influenza Type A Ag NEGATIVE (NEGATIVE) Influenza Type B Ag NEGATIVE (NEGATIVE) RSV (PCR) NEGATIVE (Negative) SARS-CoV-2 (PCR) NEGATIVE (NEGATIVE) Slides for Path Review 04/07/22 04/07/22 04/07/22 Range/Units 05:00 05:00 05:00 WBC 5.5 (4.0-10.5) x10^3/uL RBC 4.41 (4.1-5.6) x10^6/uL Hgb 12.5 (12.5-18.0) g/dL Hct 37.9 L (42-50) % MCV 85.9 (78-100) fL MCH 28.3 (26-32) pg MCHC 33.0 (32-36) g/dL RDW 14.2 H (11.5-14.0) % Plt Count 256 (150-450) x10^3/uL MPV 9.1 (7.5-11.0) fL Gran % 81.3 H (36.0-66.0) % Immature Gran % (Auto) 0.2 (0.00-0.4) % Nucleat RBC Rel Count 0.0 (0.00-0.1) % Eos # (Auto) 0.02 (0-0.5) x10^3/uL Immature Gran # (Auto) 0.01 (0.00-0.03) x10^3u/L Absolute Lymphs (auto) 0.65 L (1.0-4.6) x10^3/uL Absolute Monos (auto) 0.32 (0.0-1.3) x10^3/uL Absolute Nucleated RBC 0.00 (0.00-0.01) x10^3u/L Lymphocytes % 11.8 L (24.0-44.0) % Monocytes % 5.8 (0.0-12.0) % Eosinophils % 0.4 (0.00-5.0) % Basophils % 0.5 (0.0-0.4) % Absolute Granulocytes 4.46 (1.4-6.9) x10^3/uL Basophils # 0.03 (0-0.4) x10^3/uL Sodium 138 (137-145) mmol/L Potassium 3.9 (3.5-5.1) mmol/L Chloride 104 (98-107) mmol/L Carbon Dioxide 26 (22-30) mmol/L Anion Gap 11.1 (5-15) MEQ/L BUN 15 (9-20) mg/dL Creatinine 0.74 (0.66-1.25) mg/dL Estimated GFR > 60.0 ML/MIN Glucose 94 (74-106) mg/dL Calcium 8.1 L (8.4-10.2) mg/dL Total Bilirubin 0.40 (0.2-1.3) mg/dL AST 224 H (17-59) U/L ALT 141 H (0-50) U/L Alkaline Phosphatase 130 H (38-126) U/L Troponin I < 0.012 (0.000-0.034) ng/mL Serum Total Protein 7.2 (6.3-8.2) g/dL Albumin 4.3 (3.5-5.0) g/dL Amylase (30-110) U/L Lipase (23-300) U/L Urine Color (Yellow) Urine Appearance (Clear) Urine pH (4.6-8.0) Ur Specific [place] (1.005-1.030) Urine Protein (Negative) Urine Glucose (UA) (Negative) mg/dL Urine Ketones (Negative) Urine Blood (Negative) Urine Nitrite (Negative) Urine Bilirubin (Negative) Urine Urobilinogen (0.2) mg/dL Ur Leukocyte Esterase (Negative) U Hyaline Cast (Auto) (0-2) /LPF Urine Microscopic RBC (0-5) /HPF Urine Microscopic WBC (0-5) /HPF Ur Epithelial Cells (None Seen) /HPF Urine Bacteria (None Seen) /HPF Urine Culture Reflexed (NO) Influenza Type A Ag (NEGATIVE) Influenza Type B Ag (NEGATIVE) RSV (PCR) (Negative) SARS-CoV-2 (PCR) (NEGATIVE) Slides for Path Review - Radiology Impressions Radiology Exams & Impressions: Radiology Procedures Category Date Time Status ABDOMEN AND PELVIS W CONTRAST [CT] Stat Exams 04/07/22 00:06 Completed CHEST 1 VIEW (PORTABLE) Stat Exams 04/06/22 23:28 Completed GALLBLADDER [US] Stat Exams 04/07/22 07:04 Ordered Assessment/Plan (1) Epigastric abdominal pain Current Visit: Yes Status: Acute Assessment & Plan: resolved at this time, check gallbladder ultrasound. if not stones and able to tolerate po home later today Code(s): R10.13 - EPIGASTRIC PAIN (2) Elevated liver enzymes Current Visit: Yes Status: Acute Assessment & Plan: likely viral effect, check hepatitis panel. will f/u Code(s): R74.8 - ABNORMAL LEVELS OF OTHER SERUM ENZYMES (3) Otitis externa Current Visit: Yes Status: Acute Assessment & Plan: will order floxin drops Code(s): H60.90 - UNSPECIFIED OTITIS EXTERNA, UNSPECIFIED EAR
[2022-04-07] MEDS ORDERED: KEPPRA PO SCH (10:00)
[2022-04-07] MEDS ORDERED: Floxin Otic 5 ML OT SCH (10:00)
--- NOTE | 2022-04-07 10:15 | XRAY ---
Indication: Epigastric pain. Two-dimensional gallbladder sonogram performed. Comparison: None Gallbladder normally distended without gallstones or abnormal wall thickening. Tiny sliver of pericholecystic fluid. Common bile duct measures 5.8 mm. No intrahepatic biliary distention. Remaining visualized pancreas, liver, and right kidney are sonographically unremarkable. Right kidney measures 10.6 cm in length. Impression: Tiny nonspecific sliver of pericholecystic fluid. Remaining gallbladder sonogram is normal.
[2022-04-07 11:01] VITALS: BP 99/55; PULSE 87; O2SAT 99
--- NOTE | 2022-04-07 14:17 | PCM.DCORD ---
- Discharge Disposition: Home, Self-Care Condition: Stable Prescriptions: New Ofloxacin Otic 5 ml [Floxin Otic 5 ML] 10 drops OT DAILY #5 ml Continue Levetiracetam [Keppra] 2,000 mg PO BID Testosterone 1.62 gm TD DAILY Outpatient Orders: CMP Time Frame: 1 Week, Facility: [facility], Location: LABORATORY Additional Instructions: take a bland diet, push fluids. have cmp drawn prior to f/u appt in office as scheduled Follow up with: KHAIDJAH SKELTON MD [Primary Care Provider] -
[2022-04-11 15:08] LABS: HBsAg Screen Negative (Negative); Hep A Ab, IgM Negative (Negative); Hep B Core Ab, IgM Negative (Negative)
== END 2022-04-07 14:52 | disposition home or self-care (01) ==
LOC: ED 22:35 → MED SURG 04-07 02:47
PROVIDERS: ADMIT Family Medicine; ATTEND Family Medicine
DX: R10.13 Epigastric pain (principal); R74.8 Abnormal levels of other serum enzymes; H60.91 Unspecified otitis externa, right ear; Z79.899 Other long term (current) drug therapy; Z20.828 Contact with and (suspected) exposure to other viral communicable diseases; Z85.6 Personal history of leukemia
CPT/HCPCS: 0241U; 36000; 36415; 71045; 74177; 76705; 80053; 80074; 81001; 82150; 83690; 84484; 85025; 87086; 93005; 93041; 96374; 96375; 99285; G0378; J1170; J2405; A9270-GY

== ENCOUNTER 2022-06-07 20:10 | Emergency (ER) | payer BC ==
[2022-06-07 20:51] LABS: Absolute Neutrophil Ct (ANC) 5.82 x10^3/uL (1.4-6.9); BASOPHIL % 0.5 % (0.0-0.4); Basophil (Absolute #) 0.04 x10^3/uL (0-0.4); Eosinophil % 1.1 % (0.00-5.0); Eosinophil (Absolute #) 0.08 x10^3/uL (0-0.5); Hematocrit 37.4 % (42-50); Hemoglobin 12.2 g/dL (12.5-18.0); IMMATURE GRAN # 0.02 x10^3u/L (0.00-0.03); IMMATURE GRAN % 0.3 % (0.00-0.4); Lymphocyte (Absolute #) 1.14 x10^3/uL (1.0-4.6); Mean Cell Volume 85.6 fL (78-100); Mean Corpuscular Hemoglobin 27.9 pg (26-32); Mean Corpuscular Hgb Concent. 32.6 g/dL (32-36); Mean Platelet Volume 9.1 fL (7.5-11.0); Monocyte (Absolute #) 0.51 x10^3/uL (0.0-1.3); Monocytes % 6.7 % (0.0-12.0); Neutrophil % 76.4 % (36.0-66.0); Platelet Count 252 x10^3/uL (150-450); Red Blood Count 4.37 x10^6/uL (4.1-5.6); Red Cell Distribution Width 15.5 % (11.5-14.0); White Blood Count 7.6 x10^3/uL (4.0-10.5)
[2022-06-07 20:59] LABS: ALBUMIN 4.2 g/dL (3.5-5.0); ALKALINE PHOSPHATASE 86 U/L (38-126); ANION GAP 13.8 MEQ/L (5-15); BLOOD UREA NITROGEN 18 mg/dL (9-20); CHLORIDE 96 mmol/L (98-107); Calcium 8.1 mg/dL (8.4-10.2); Carbon Dioxide 29 mmol/L (22-30); Creatinine 1 1.03 mg/dL (0.66-1.25); EST GLOMERULAR FILTRATION RATE > 60.0 ML/MIN; Glucose 167 mg/dL (74-106); SGOT/AST 41 U/L (17-59); SGPT/ALT 22 U/L (0-50); SODIUM 134 mmol/L (137-145); Total Protein 7.5 g/dL (6.3-8.2)
[2022-06-07] MEDS ORDERED: TORAdol 30 mg Injection IV ONE (21:08)
[2022-06-07] MEDS ORDERED: TORAdol 30 mg Injection ONE (21:10)
--- NOTE | 2022-06-07 23:42 | ERPHSYRPT ---
- History of Present Illness Time Seen by Provider: 06/07/22 20:25 Source: patient Exam Limitations: no limitations Patient Subjective Stated Complaint: pt states he was not feeling well this morning. now he feels short of breath with exertion and with try ing to speak. pt states he is worried about his rt hand, states he was told by a dr where he works that he has raynauds and occasionally his hand turns while. today his hand turned white and his index finger was purple, resolved after wearing gloves at home. Triage Nursing Assessment: pt alert and oriented, answers questions aprpop. pt ambulates into room with steady gait noted. respirations nonlabored. skin warm and dry. hands warm and colr wnl. cap refill wnl, radial pulses wnl. Physician History: Please a 41-year-old male presents to our emergency department for evaluation of feeling unwell. Patient experiencing some vague shortness of breath and some c hest pressure. Mild chest pain when he lays flat. Pain improves when he sits upright. No trauma. No fever. Patient believes he may also have Raynaud's of his extremities. As he developed some cyanosis of his fingers in cold weather. Currently no reactive Raynaud's observed. EKG shows possible early benign repolarization. No pericarditis changes. Symptoms are mild to moderate in intensity. No specific worsening improving factors. Patient voices no other complaints or concerns at this time. Portions of this note were created with voice recognition technology. There may be grammatical, spelling, punctuation or sound alike errors Timing/Duration: day(s) (2 days) Activities at Onset: none Severity of Dyspnea-Max: moderate Severity of Dyspnea-Current: mild Possible Cause: no prior episodes Modifying Factors: Improves With: nothing Associated Symptoms: cough, No weakness, No ankle swelling, No leg swelling, No muscle spasms hands, No tingling face Allergies/Adverse Reactions: azithromycin [From Zithromax Z-Uday] Allergy (Verified 06/07/22 20:31) Hives lamotrigine [From Lamictal] Allergy (Verified 06/07/22 20:31) Rash Home Medications: Levetiracetam [Keppra] 2,000 mg PO BID 03/14/16 [History] Testosterone 1.62 gm TD DAILY 01/19/23 [History] Hx Tetanus, Diphtheria Vaccination/Date Given: Yes Hx Influenza Vaccination/Date Given: No Hx Pneumococcal Vaccination/Date Given: No Immunizations Up to Date: Yes Travel Risk - International Travel Have you traveled outside of the country in past 3 weeks: No - Coronavirus Screening Are you exhibiting any of the following symptoms?: No Symptoms: Shortness of Breath Close contact with a COVID-19 positive Pt in past 14-21 Days: No - Vaccine Status Have you recieved a Covid-19 vaccination: Yes 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[employer] - Vaccination Dates Date of 2cond Vaccination (if applicable): 2021 - Review of Systems Constitutional: No Symptoms, No Fever, No Chills Eyes: No Symptoms Ears, Nose, & Throat: No Symptoms Respiratory: No Symptoms, No Cough, No Dyspnea Cardiac: No Symptoms, Other (Muffled heart sounds), No Chest Pain, No Edema, No Syncope Abdominal/Gastrointestinal: No Symptoms, No Abdominal Pain, No Nausea, No Vomiting, No Diarrhea Genitourinary Symptoms: No Symptoms, No Dysuria Musculoskeletal: No Symptoms, No Back Pain, No Neck Pain Skin: No Symptoms, No Rash Neurological: No Symptoms, No Dizziness, No Focal Weakness, No Sensory Changes Psychological: No Symptoms Endocrine: No Symptoms Hematologic/Lymphatic: No Symptoms Immunological/Allergic: No Symptoms All Other Systems: Reviewed and Negative - Past Medical History Pertinent Past Medical History: Yes Neurological History: Seizures ENT History: No Pertinent History Cardiac History: Other Respiratory History: No Pertinent History Endocrine Medical History: No Pertinent History Musculoskeletal History: No Pertinent History GI Medical History: Hepatitis History: No Pertinent History Psycho-Social History: No Pertinent History Male Reproductive Disorders: No Pertinent History Other Medical History: HEP C, ACUTE LYMPHOCYTIC LEUKEMIA, former kidney problems. lt foot fx - Past Surgical History Past Surgical History: No Neuro Surgical History: Neurological Surgery Cardiac: No Pertinent History Respiratory: No Pertinent History Gastrointestinal: No Pertinent History Genitourinary: No Pertinent History Musculoskeletal: No Pertinent History Male Surgical History: No Pertinent History Other Surgical History: brain tumor removed, central lines placed - Social History Smoking Status: Never smoker Exposure to second hand smoke: No Drug Use: none Patient Lives Alone: Yes Significant Family History: no pertinent family hx - Nursing Vital Signs Nursing Vital Signs: Initial Vital Signs Temperature 97.8 F 06/07/22 20:11 Pulse Rate 115 H 06/07/22 20:11 Respiratory Rate 20 06/07/22 20:11 Blood Pressure 105/65 06/07/22 20:11 O2 Sat by Pulse Oximetry 100 06/07/22 20:11 Pain Scale Pain Intensity 0 - Physical Exam General Appearance: no apparent distress, alert Eye Exam: PERRL/EOMI, eyes nml inspection Ears, Nose, Throat Exam: hearing grossly normal, normal ENT inspection, normal pharynx Neck Exam: normal inspection, supple Respiratory Exam: other Cardiovascular/Chest Exam: normal heart sounds, regular rate/rhythm, other (Muffled heart sounds) Abdominal/Gastrointestinal Exam: soft, No tenderness, No distention, No mass Extremity Exam: non-tender, normal range of motion, normal inspection, no calf tenderness, no pedal edema Neurologic Exam: alert, oriented x 3, cooperative, 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 Negative for PE. Moderate pericardial effusion. 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 STAT Care 06/07/22 20:46 Active EKG-ER Only STAT Care 06/07/22 20:45 Active IV Insertion STAT Care 06/07/22 20:45 Active CHEST WITH CONTRAST [CT] Stat Exams 06/07/22 21:26 Taken CBC W DIFF Stat Lab 06/07/22 20:40 Completed CMP Stat Lab 06/07/22 20:40 Completed D-DIMER QUANTITATIVE Stat Lab 06/07/22 20:40 Completed TROPONIN Q4H Lab 06/07/22 20:40 Completed TROPONIN Q4H Lab 06/08/22 01:05 Completed TROPONIN Q4H Lab 06/08/22 06:50 Received Medication Summary Generic Name Dose Route Start Last Admin Trade Name Freq PRN Reason Stop Dose Admin Sodium Chloride 1,000 mls @ 100 mls/hr 06/08/22 03:00 06/08/22 03:13 Sodium Chloride 0.9% 1000 Ml IV 07/08/22 02:59 100 mls/hr .Q10H MAMIE Administration Discontinued Medications Generic Name Dose Route Start Last Admin Trade Name Marielos PRN Reason Stop Dose Admin Ketorolac Tromethamine 30 mg 06/07/22 21:08 06/07/22 21:11 Ketorolac Tromethamine 30 Mg/Ml Inj IV 06/07/22 21:09 30 mg STAT ONE Administration Ketorolac Tromethamine Confirm 06/07/22 21:10 Ketorolac Tromethamine 30 Mg/Ml Inj Administered 06/07/22 21:11 Dose 30 mg .ROUTE .STK-MED ONE Lab/Rad Data: Laboratory Result Diagrams 06/07/22 20:40 06/07/22 20:40 Laboratory Results 06/08/22 06/07/22 06/07/22 Range/Units 01:05 20:40 20:40 WBC (4.0-10.5) x10^3/uL RBC (4.1-5.6) x10^6/uL Hgb (12.5-18.0) g/dL Hct (42-50) % MCV (78-100) fL MCH (26-32) pg MCHC (32-36) g/dL RDW (11.5-14.0) % Plt Count (150-450) x10^3/uL MPV (7.5-11.0) fL Gran % (36.0-66.0) % Immature Gran % (Auto) (0.00-0.4) % Nucleat RBC Rel Count (0.00-0.1) % Eos # (Auto) (0-0.5) x10^3/uL Immature Gran # (Auto) (0.00-0.03) x10^3u/L Absolute Lymphs (auto) (1.0-4.6) x10^3/uL Absolute Monos (auto) (0.0-1.3) x10^3/uL Absolute Nucleated RBC (0.00-0.01) x10^3u/L Lymphocytes % (24.0-44.0) % Monocytes % (0.0-12.0) % Eosinophils % (0.00-5.0) % Basophils % (0.0-0.4) % Absolute Granulocytes (1.4-6.9) x10^3/uL Basophils # (0-0.4) x10^3/uL D-Dimer 0.65 H* (0.0-0.50) mg/L Sodium (137-145) mmol/L Potassium (3.5-5.1) mmol/L Chloride (98-107) mmol/L Carbon Dioxide (22-30) mmol/L Anion Gap (5-15) MEQ/L BUN (9-20) mg/dL Creatinine (0.66-1.25) mg/dL Estimated GFR ML/MIN Glucose (74-106) mg/dL Calcium (8.4-10.2) mg/dL Total Bilirubin (0.2-1.3) mg/dL AST (17-59) U/L ALT (0-50) U/L Alkaline Phosphatase (38-126) U/L Troponin I < 0.012 < 0.012 (0.000-0.034) ng/mL Serum Total Protein (6.3-8.2) g/dL Albumin (3.5-5.0) g/dL 06/07/22 06/07/22 Range/Units 20:40 20:40 WBC 7.6 (4.0-10.5) x10^3/uL RBC 4.37 (4.1-5.6) x10^6/uL Hgb 12.2 L (12.5-18.0) g/dL Hct 37.4 L (42-50) % MCV 85.6 (78-100) fL MCH 27.9 (26-32) pg MCHC 32.6 (32-36) g/dL RDW 15.5 H (11.5-14.0) % Plt Count 252 (150-450) x10^3/uL MPV 9.1 (7.5-11.0) fL Gran % 76.4 H (36.0-66.0) % Immature Gran % (Auto) 0.3 (0.00-0.4) % Nucleat RBC Rel Count 0.0 (0.00-0.1) % Eos # (Auto) 0.08 (0-0.5) x10^3/uL Immature Gran # (Auto) 0.02 (0.00-0.03) x10^3u/L Absolute Lymphs (auto) 1.14 (1.0-4.6) x10^3/uL Absolute Monos (auto) 0.51 (0.0-1.3) x10^3/uL Absolute Nucleated RBC 0.00 (0.00-0.01) x10^3u/L Lymphocytes % 15.0 L (24.0-44.0) % Monocytes % 6.7 (0.0-12.0) % Eosinophils % 1.1 (0.00-5.0) % Basophils % 0.5 (0.0-0.4) % Absolute Granulocytes 5.82 (1.4-6.9) x10^3/uL Basophils # 0.04 (0-0.4) x10^3/uL D-Dimer (0.0-0.50) mg/L Sodium 134 L (137-145) mmol/L Potassium 4.0 (3.5-5.1) mmol/L Chloride 96 L (98-107) mmol/L Carbon Dioxide 29 (22-30) mmol/L Anion Gap 13.8 (5-15) MEQ/L BUN 18 (9-20) mg/dL Creatinine 1.03 (0.66-1.25) mg/dL Estimated GFR > 60.0 ML/MIN Glucose 167 H (74-106) mg/dL Calcium 8.1 L (8.4-10.2) mg/dL Total Bilirubin 0.70 (0.2-1.3) mg/dL AST 41 (17-59) U/L ALT 22 (0-50) U/L Alkaline Phosphatase 86 (38-126) U/L Troponin I (0.000-0.034) ng/mL Serum Total Protein 7.5 (6.3-8.2) g/dL Albumin 4.2 (3.5-5.0) g/dL - Progress Progress: improved Air Movement: fair Progress Note: Case discussed with Dr. Hernandez hospitalist [facility] who accepts transfer. 06/08/22 00:14 Bed assignment available. However we have no transport to get patient from our hospital to [facility]. Patient resting comfortably. Patient arrived to our ED with complaints of shortness of breath. Testing includes CBC, CMP, D-dimer, troponin. D-dimer positive. CTA chest reveals a moderate pericardial effusion. Patient will be transferred once transport becomes available. Patient's problem is acute. Complexity of problem addressed is moderate. New diagnosis with uncertain prognosis. No critical care time. Complexity of data reviewed and analyzed is moderate. Test ordered. Test reviewed. Management discussed with hospitalist Dr. [facility]leon of [facility] who accepts transfer. Risk of complication and or morbidity/mortality of patient management is moderate. Patient will be transferred for hospitalization. Patient requested IV fluids as he was feeling dehydrated. Patient given ice water to drink. Toradol given for pain control. Patient resting comfortably. Patient agrees to transfer to [facility] for further evaluation and treatment. Vital stable. 06/08/22 06:09 06/08/22 06:57 Blood Culture(s) Obtained: No Antibiotics given: No Counseled pt/family regarding: lab results, diagnosis, rad results - Departure Departure Disposition: Transfer Clinical Impression: Shortness of breath, Pericardial effusion Condition: Stable Critical Care Time: No Referrals: KHADIJAH SKELTON MD [Primary Care Provider] - Follow up/PCP as directed
[2022-06-08] MEDS ORDERED: Sodium Chloride 0.9% 1000 ML 1,000 ML IV SCH (03:00)
[2022-06-08] MEDS ORDERED: KEPPRA PO ONE (07:31)
--- NOTE | 2022-06-08 08:41 | XRAY ---
Indication: Chest pain and short of breath. Elevated d-dimer. Multiple contiguous axial images obtained through the chest using 100 cc Isovue 370 contrast and PE protocol. Comparison: None Good opacification of the pulmonary arteries to include the lobar and segmental branches. No pulmonary embolus. Heart is not enlarged with moderate pericardial effusion. Tiny subcarinal/left hilar and small distal paraesophageal calcified nodes. No pathologic mediastinal/hilar lymphadenopathy. Lungs demonstrates small focal bibasilar subsegmental atelectasis/scarring and a few tiny left lung calcified granulomas. Bony thorax intact. Limited upper abdomen demonstrates tiny splenic calcified granulomas. Impression: 1. Negative pulmonary embolus. 2. Moderate pericardial effusion better evaluated with echocardiogram. 3. Incidental old granulomatous disease.
[2022-06-08 08:49] VITALS: BP 111/72; PULSE 100; O2SAT 97
[2022-06-08] MEDS ORDERED: TORAdol 30 mg Injection ONE (09:18)
[2022-06-08] MEDS ORDERED: TORAdol 30 mg Injection IV ONE (09:19)
== END 2022-06-08 09:25 | disposition short-term general hospital (02) ==
LOC: ED 20:10
DX: I31.39 Other pericardial effusion (noninflammatory) (principal); R06.02 Shortness of breath; R07.9 Chest pain, unspecified; Z79.899 Other long term (current) drug therapy
CPT/HCPCS: 36000; 36415; 71260; 80053; 84484; 85025; 85379; 93005; 93041; 96360; 96361; 96374; 96375; 99285; J1885; A9270-GY

== ENCOUNTER 2022-08-12 14:39 | Emergency (ER) | payer BC ==
[2022-08-12] MEDS ORDERED: MORPHINE SULFATE 4 MG INJ IV ONE ×2 (15:26→22:16)
[2022-08-12] MEDS ORDERED: Zofran 4 MG/2 ML VIAL IV ONE (15:26)
[2022-08-12] MEDS ORDERED: BABY ASPIRIN 81 MG CHEW PO ONE (15:27)
[2022-08-12 15:44] LABS: Absolute Neutrophil Ct (ANC) 7.29 x10^3/uL (1.4-6.9); BASOPHIL % 0.3 % (0.0-0.4); Basophil (Absolute #) 0.03 x10^3/uL (0-0.4); Eosinophil % 0.3 % (0.00-5.0); Eosinophil (Absolute #) 0.03 x10^3/uL (0-0.5); Hemoglobin 12.1 g/dL (12.5-18.0); IMMATURE GRAN # 0.02 x10^3u/L (0.00-0.03); IMMATURE GRAN % 0.2 % (0.00-0.4); Lymphocyte (Absolute #) 0.92 x10^3/uL (1.0-4.6); Lymphocytes % 10.3 % (24.0-44.0); Mean Cell Volume 85.1 fL (78-100); Mean Corpuscular Hemoglobin 27.8 pg (26-32); Mean Corpuscular Hgb Concent. 32.7 g/dL (32-36); Mean Platelet Volume 9.3 fL (7.5-11.0); Monocyte (Absolute #) 0.65 x10^3/uL (0.0-1.3); Monocytes % 7.3 % (0.0-12.0); Neutrophil % 81.6 % (36.0-66.0); Platelet Count 317 x10^3/uL (150-450); Red Blood Count 4.35 x10^6/uL (4.1-5.6); Red Cell Distribution Width 15.7 % (11.5-14.0); White Blood Count 8.9 x10^3/uL (4.0-10.5)
--- NOTE | 2022-08-12 16:03 | XRAY ---
Indication: Chest pain. Comparison: April 06, 2022 Portable chest again demonstrates minimal left base fibrosis/scarring and tiny left lung calcified granuloma. Remaining heart and lungs normal. Bony thorax intact. No new/acute findings.
[2022-08-12 16:17] LABS: INR 1.05 (0.8-3.0); PROTIME 11.4 SECONDS (9.4-12.5); PTT 36.7 SECONDS (25.1-36.5)
[2022-08-12 17:01] LABS: ALBUMIN 4.3 g/dL (3.5-5.0); ALKALINE PHOSPHATASE 123 U/L (38-126); ANION GAP 15.5 MEQ/L (5-15); BLOOD UREA NITROGEN 17 mg/dL (9-20); CHLORIDE 99 mmol/L (98-107); Calcium 8.2 mg/dL (8.4-10.2); Carbon Dioxide 25 mmol/L (22-30); Creatinine 1 1.09 mg/dL (0.66-1.25); EST GLOMERULAR FILTRATION RATE > 60.0 ML/MIN; Glucose 99 mg/dL (74-106); MAGNESIUM 2.1 mg/dL (1.6-2.3); NT PRO BNPII 1480 pg/mL (<300); Potassium 4.1 mmol/L (3.5-5.1); SGOT/AST 40 U/L (17-59); SGPT/ALT 29 U/L (0-50); SODIUM 136 mmol/L (137-145); Total Protein 8.1 g/dL (6.3-8.2)
--- NOTE | 2022-08-12 17:34 | ERPHSYRPT ---
- History of Present Illness Historian: patient, family Exam Limitations: no limitations Patient Subjective Stated Complaint: PT HERE FOR SOB AND CHEST PAIN, TODAY, WAS SEEN RECENTLY AT [facility] AND HAD CHEST TUBES TO REMOVE FLUID ON LUNGS, Triage Nursing Assessment: PT ALERT, RESP EASY, SKIN W/D/P. SOB WITH EXCERTION, NO EDEMA NOTED, Physician History: 41 yo WM w L lateral chest pain since 4AM which is described as dull,7/10, and radiates to his neck. Nothing makes the pain better or worse. Pain accompanied by dyspnea but N/V/diaphoresis denied. Pt recently spent a week at [facility] for a pericardial effusion. He has a h/o CHF/but denies DM/HTN/Hyperlipidemia/tobacco use/PE. Timing/Duration: other (4AM) Quality: dullness Location: other (L lateral thorax) Chest Pain Radiation: neck Severity of Pain-Max: severe Severity of Pain-Current: moderate Modifying Factors: Improves With: nothing Associated Symptoms: denies symptoms, shortness of breath Nitro Today/Relief: no nitro taken today Aspirin Treatment Today: no aspirin today Allergies/Adverse Reactions: azithromycin [From Zithromax Z-Uday] Allergy (Verified 08/12/22 14:49) Hives lamotrigine [From Lamictal] Allergy (Verified 08/12/22 14:49) Rash Home Medications: Levetiracetam [Keppra] 2,000 mg PO BID 03/14/16 [History] Testosterone 1.62 gm TD DAILY 04/07/22 [History] Colchicine 0.6 mg PO DAILY 08/12/22 [History] Empagliflozin [Jardiance] 25 mg PO DAILY 08/12/22 [History] Metoprolol Tartrate 25 mg [Lopressor 25MG Tab] 25 mg PO DAILY 08/12/22 [History] Sacubitril/Valsartan [Entresto 24 mg-26 mg Tablet] 1 ea BID 08/12/22 [History] Spironolactone 25 mg [Aldactone 25 MG] 12.5 mg PO DAILY 08/12/22 [History] Topiramate 25 mg [Topamax 25 MG] 25 mg PO BID 08/12/22 [History] Hx Tetanus, Diphtheria Vaccination/Date Given: Yes Hx Influenza Vaccination/Date Given: No Hx Pneumococcal Vaccination/Date Given: No Immunizations Up to Date: Yes Travel Risk - International Travel Have you traveled outside of the country in past 3 weeks: No - Coronavirus Screening Are you exhibiting any of the following symptoms?: No Close contact with a COVID-19 positive Pt in past 14-21 Days: No - Vaccine Status Have you recieved a Covid-19 vaccination: Yes 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 - Vaccination Dates Date of 2cond Vaccination (if applicable): 2021 - Review of Systems Constitutional: No Symptoms Eyes: No Symptoms Ears, Nose, & Throat: No Symptoms Respiratory: No Symptoms, Dyspnea Cardiac: No Symptoms, Chest Pain Abdominal/Gastrointestinal: No Symptoms Genitourinary Symptoms: No Symptoms Musculoskeletal: No Symptoms Skin: No Symptoms Neurological: No Symptoms Psychological: No Symptoms Endocrine: No Symptoms Hematologic/Lymphatic: No Symptoms Immunological/Allergic: No Symptoms - Past Medical History Pertinent Past Medical History: Yes Neurological History: Seizures ENT History: No Pertinent History Cardiac History: Coronary Artery Disease, Other Respiratory History: No Pertinent History Endocrine Medical History: No Pertinent History Musculoskeletal History: No Pertinent History GI Medical History: Hepatitis History: No Pertinent History Psycho-Social History: No Pertinent History Male Reproductive Disorders: No Pertinent History Other Medical History: HEP C, ACUTE LYMPHOCYTIC LEUKEMIA, former kidney problems . HEART VALVE PROBLEMS,. lt foot fx - Past Surgical History Past Surgical History: No Neuro Surgical History: Neurological Surgery Cardiac: No Pertinent History Respiratory: No Pertinent History Gastrointestinal: No Pertinent History Genitourinary: No Pertinent History Musculoskeletal: No Pertinent History Male Surgical History: No Pertinent History Other Surgical History: brain tumor removed, central lines placed.CHEST TUBES 06/2022 - Social History Smoking Status: Never smoker Exposure to second hand smoke: No Drug Use: none Patient Lives Alone: Yes Significant Family History: no pertinent family hx - Nursing Vital Signs Nursing Vital Signs: Initial Vital Signs Pulse Rate 100 H 08/12/22 14:47 Pain Scale Pain Intensity 6 - Physical Exam General Appearance: mild distress, anxiety Eye Exam: PERRL/EOMI, eyes nml inspection Ears, Nose, Throat Exam: normal ENT inspection, TMs normal, pharynx normal, moist mucous membranes Neck Exam: normal inspection, non-tender, supple, full range of motion, No meningismus, No mass, No Brudzinski, No Kernig's, No carotid bruit Respiratory Exam: normal breath sounds, lungs clear, airway intact, No respiratory distress Cardiovascular Exam: murmur (3/6 SOFYA), tachycardia Gastrointestinal/Abdomen Exam: soft, normal bowel sounds, No tenderness Back Exam: normal inspection, normal range of motion, No CVA tenderness, No vertebral tenderness Extremity Exam: normal inspection, normal range of motion Neurologic Exam: alert, oriented x 3, cooperative, medication care manager II-XII nml as tested, normal mood/affect, nml cerebellar function, nml station & gait, sensation nml Skin Exam: normal color, warm, dry, No rash Lymphatic Exam: No adenopathy SpO2 Interpretation: normal SpO2: 94 O2 Delivery: Room Air - Course Nursing assessment & vital signs reviewed: Yes EKG Interpreted by Me: RATE (Sinus tach/Normal QT-QTc/IRBBB/No acute ST segment changes/Normal twaves) - Radiology Exams Chest X-ray Interpretation: Reviewed by me (L basilar fibrosis), Discussed w/ radiologist - CT Exams Chest CT Interpretation: Tele-radiologist Report (CTA chest/No PE/Moderate R pleural effusion/Mild to moderate pericardial effusion) Ordered Tests: Active Orders 24 hr Category Date Time Status EKG-ER Only STAT Care 08/12/22 15:24 Completed CHEST 1 VIEW (PORTABLE) Stat Exams 08/12/22 15:25 Completed CHEST WITH CONTRAST [CT] Stat Exams 08/12/22 17:38 Completed CBC W DIFF Stat Lab 08/12/22 15:24 Completed CMP Stat Lab 08/12/22 15:37 Completed D-DIMER QUANTITATIVE Stat Lab 08/12/22 17:21 Completed MAGNESIUM Stat Lab 08/12/22 15:37 Completed NT PRO BNPII Stat Lab 08/12/22 15:37 Completed PROTIME WITH INR Stat Lab 08/12/22 15:37 Completed PTT Stat Lab 08/12/22 15:37 Completed TROPONIN Q4H Lab 08/12/22 15:37 Completed TROPONIN Q4H Lab 08/12/22 18:40 Completed TROPONIN Stat Lab 08/12/22 20:23 Completed Medication Summary Discontinued Medications Generic Name Dose Route Start Last Admin Trade Name Freq PRN Reason Stop Dose Admin Aspirin 324 mg 08/12/22 15:27 08/12/22 15:31 Aspirin 81 Mg Tab.Chew PO 08/12/22 15:28 324 mg STAT ONE Administration Aspirin Confirm 08/12/22 18:03 Aspirin 81 Mg Tab.Chew Administered 08/12/22 18:04 Dose 324 mg .ROUTE .STK-MED ONE Sodium Chloride 500 mls @ 500 mls/hr 08/12/22 19:10 08/12/22 20:18 Sodium Chloride 0.9% 500 Ml IV 08/12/22 20:09 Infused .Q1H ONE Infusion Sodium Chloride Confirm 08/12/22 19:13 Sodium Chloride 0.9% 500 Ml Administered 08/12/22 19:14 Dose 500 mls @ ud IV .STK-MED ONE Levetiracetam 2,000 mg 08/12/22 21:46 08/12/22 22:26 Levetiracetam 250 Mg Tablet PO 08/12/22 21:47 2,000 mg STAT ONE Administration Morphine Sulfate 4 mg 08/12/22 15:26 08/12/22 15:30 Morphine Sulfate 4 Mg/Ml Injection IV 08/12/22 15:27 4 mg STAT ONE Administration Morphine Sulfate 4 mg 08/12/22 22:16 08/12/22 22:33 Morphine Sulfate 4 Mg/Ml Injection IV 08/12/22 22:17 4 mg STAT ONE Administration Morphine Sulfate Confirm 08/12/22 22:31 Morphine Sulfate 4 Mg/Ml Injection Administered 08/12/22 22:32 Dose 4 mg .ROUTE .STK-MED ONE Ondansetron HCl 4 mg 08/12/22 15:26 08/12/22 15:30 Ondansetron Hcl 4 Mg/2 Ml Vial IV 08/12/22 15:27 4 mg STAT ONE Administration Topiramate 25 mg 08/12/22 21:48 08/12/22 22:28 Topiramate 50 Mg Tablet PO 08/12/22 21:49 25 mg ONCE ONE Administration Lab/Rad Data: Laboratory Result Diagrams 08/12/22 15:24 08/12/22 15:37 Laboratory Results 08/12/22 08/12/22 08/12/22 Range/Units 20:23 18:40 17:21 WBC (4.0-10.5) x10^3/uL RBC (4.1-5.6) x10^6/uL Hgb (12.5-18.0) g/dL Hct (42-50) % MCV (78-100) fL MCH (26-32) pg MCHC (32-36) g/dL RDW (11.5-14.0) % Plt Count (150-450) x10^3/uL MPV (7.5-11.0) fL Gran % (36.0-66.0) % Immature Gran % (Auto) (0.00-0.4) % Nucleat RBC Rel Count (0.00-0.1) % Eos # (Auto) (0-0.5) x10^3/uL Immature Gran # (Auto) (0.00-0.03) x10^3u/L Absolute Lymphs (auto) (1.0-4.6) x10^3/uL Absolute Monos (auto) (0.0-1.3) x10^3/uL Absolute Nucleated RBC (0.00-0.01) x10^3u/L Lymphocytes % (24.0-44.0) % Monocytes % (0.0-12.0) % Eosinophils % (0.00-5.0) % Basophils % (0.0-0.4) % Absolute Granulocytes (1.4-6.9) x10^3/uL Basophils # (0-0.4) x10^3/uL PT (9.4-12.5) SECONDS INR (0.8-3.0) APTT (25.1-36.5) SECONDS D-Dimer 2.06 H* (0.0-0.50) mg/L Sodium (137-145) mmol/L Potassium (3.5-5.1) mmol/L Chloride (98-107) mmol/L Carbon Dioxide (22-30) mmol/L Anion Gap (5-15) MEQ/L BUN (9-20) mg/dL Creatinine (0.66-1.25) mg/dL Estimated GFR ML/MIN Glucose (74-106) mg/dL Calcium (8.4-10.2) mg/dL Magnesium (1.6-2.3) mg/dL Total Bilirubin (0.2-1.3) mg/dL AST (17-59) U/L ALT (0-50) U/L Alkaline Phosphatase (38-126) U/L Troponin I 0.025 0.019 (0.000-0.034) ng/mL NT-Pro-B Natriuret Pep (<300) pg/mL Serum Total Protein (6.3-8.2) g/dL Albumin (3.5-5.0) g/dL 08/12/22 08/12/22 08/12/22 Range/Units 15:37 15:37 15:37 WBC (4.0-10.5) x10^3/uL RBC (4.1-5.6) x10^6/uL Hgb (12.5-18.0) g/dL Hct (42-50) % MCV (78-100) fL MCH (26-32) pg MCHC (32-36) g/dL RDW (11.5-14.0) % Plt Count (150-450) x10^3/uL MPV (7.5-11.0) fL Gran % (36.0-66.0) % Immature Gran % (Auto) (0.00-0.4) % Nucleat RBC Rel Count (0.00-0.1) % Eos # (Auto) (0-0.5) x10^3/uL Immature Gran # (Auto) (0.00-0.03) x10^3u/L Absolute Lymphs (auto) (1.0-4.6) x10^3/uL Absolute Monos (auto) (0.0-1.3) x10^3/uL Absolute Nucleated RBC (0.00-0.01) x10^3u/L Lymphocytes % (24.0-44.0) % Monocytes % (0.0-12.0) % Eosinophils % (0.00-5.0) % Basophils % (0.0-0.4) % Absolute Granulocytes (1.4-6.9) x10^3/uL Basophils # (0-0.4) x10^3/uL PT 11.4 (9.4-12.5) SECONDS INR 1.05 (0.8-3.0) APTT 36.7 H (25.1-36.5) SECONDS D-Dimer (0.0-0.50) mg/L Sodium 136 L (137-145) mmol/L Potassium 4.1 (3.5-5.1) mmol/L Chloride 99 (98-107) mmol/L Carbon Dioxide 25 (22-30) mmol/L Anion Gap 15.5 H (5-15) MEQ/L BUN 17 (9-20) mg/dL Creatinine 1.09 (0.66-1.25) mg/dL Estimated GFR > 60.0 ML/MIN Glucose 99 (74-106) mg/dL Calcium 8.2 L (8.4-10.2) mg/dL Magnesium 2.1 (1.6-2.3) mg/dL Total Bilirubin 0.70 (0.2-1.3) mg/dL AST 40 (17-59) U/L ALT 29 (0-50) U/L Alkaline Phosphatase 123 (38-126) U/L Troponin I < 0.012 (0.000-0.034) ng/mL NT-Pro-B Natriuret Pep 1480 (<300) pg/mL Serum Total Protein 8.1 (6.3-8.2) g/dL Albumin 4.3 (3.5-5.0) g/dL 08/12/22 Range/Units 15:24 WBC 8.9 (4.0-10.5) x10^3/uL RBC 4.35 (4.1-5.6) x10^6/uL Hgb 12.1 L (12.5-18.0) g/dL Hct 37.0 L (42-50) % MCV 85.1 (78-100) fL MCH 27.8 (26-32) pg MCHC 32.7 (32-36) g/dL RDW 15.7 H (11.5-14.0) % Plt Count 317 (150-450) x10^3/uL MPV 9.3 (7.5-11.0) fL Gran % 81.6 H (36.0-66.0) % Immature Gran % (Auto) 0.2 (0.00-0.4) % Nucleat RBC Rel Count 0.0 (0.00-0.1) % Eos # (Auto) 0.03 (0-0.5) x10^3/uL Immature Gran # (Auto) 0.02 (0.00-0.03) x10^3u/L Absolute Lymphs (auto) 0.92 L (1.0-4.6) x10^3/uL Absolute Monos (auto) 0.65 (0.0-1.3) x10^3/uL Absolute Nucleated RBC 0.00 (0.00-0.01) x10^3u/L Lymphocytes % 10.3 L (24.0-44.0) % Monocytes % 7.3 (0.0-12.0) % Eosinophils % 0.3 (0.00-5.0) % Basophils % 0.3 (0.0-0.4) % Absolute Granulocytes 7.29 H (1.4-6.9) x10^3/uL Basophils # 0.03 (0-0.4) x10^3/uL PT (9.4-12.5) SECONDS INR (0.8-3.0) APTT (25.1-36.5) SECONDS D-Dimer (0.0-0.50) mg/L Sodium (137-145) mmol/L Potassium (3.5-5.1) mmol/L Chloride (98-107) mmol/L Carbon Dioxide (22-30) mmol/L Anion Gap (5-15) MEQ/L BUN (9-20) mg/dL Creatinine (0.66-1.25) mg/dL Estimated GFR ML/MIN Glucose (74-106) mg/dL Calcium (8.4-10.2) mg/dL Magnesium (1.6-2.3) mg/dL Total Bilirubin (0.2-1.3) mg/dL AST (17-59) U/L ALT (0-50) U/L Alkaline Phosphatase (38-126) U/L Troponin I (0.000-0.034) ng/mL NT-Pro-B Natriuret Pep (<300) pg/mL Serum Total Protein (6.3-8.2) g/dL Albumin (3.5-5.0) g/dL - Progress Progress: improved Progress Note: 08/13/22 00:10 Nursing note and vital signs reviewed No food or housing insecurities noted Additional history per ASA 324 mg after Hx/Physical exam Morphine 4mg IV/Zofran 4mg IV w improvement in pain All lab results reviewed and shared w pt/ CXR/CTA chest result reviewed and shared w pt/ Pt transferred due to moderate pericardial effusion and elevating troponin Pt [facility] but doubtful that bed would be available tonight or tomorrow Pt [facility] MSO[facility] before transfer 08/13/22 00:30 Counseled pt/family regarding: lab results, diagnosis, rad results Medical Desision Making - Independent Historian Additional History obtained from: Spouse - Discussion of managment Care discussed with:: specialist Reviewed:: Test results, Need for additional workup - Diagnostic Testing Radiological Interpretation: Reviewed by me, Discussed w/ radiologist - Risk of complications The pt has a high risk of morbidity or mortality based on: Drug therapy requiring intensive monitoring for toxicity - Departure Departure Disposition: Transfer Clinical Impression: Pericardial effusion, Elevated troponin Condition: Stable Critical Care Time: Yes Critical Care Time(excluding separately billable procedures): Critical 30-74 mins Referrals: KHADIJAH SKELTON MD [Primary Care Provider] - Follow up/PCP as directed
[2022-08-12] MEDS ORDERED: BABY ASPIRIN 81 MG CHEW ONE (18:03)
[2022-08-12] MEDS ORDERED: Sodium Chloride 0.9% 500 ML 500 ML IV ONE ×2 (19:10→19:13)
--- NOTE | 2022-08-12 20:35 | XRAY ---
CLINICAL HISTORY:Chest pain. Pulmonary embolism suspected; COMPARISON:06/07/2022; TECHNIQUES:Multiple axial slices with coronal and sagittal reformatting from CT scan pulmonary angiography have been submitted for interpretation. 100cc isovue was administered as an intravenous contrast agent; FINDINGS: Normal opacification and caliber of the main pulmonary artery, right pulmonary artery, left pulmonary artery and their branches down to the third order branches with no definite current CT evidence to suggest pulmonary embolism. Moderate degree right-sided pulmonary effusion is noted with adjacent subsegmental atelectasis. Dense rounded calcified foci are noted in the left lung lower lobe (apical segment impression #25 series 3, posterior basal segment image #37 series 3). There is 3 mm soft tissue density nodule is noted in the lateral segment of right lung middle lobe (image #26 series 3). Redemonstration of mild to moderate pericardial effusion is seen. Cardiothoracic ratio is within normal limits. Left-sided calcified hilar lymph nodes are noted. Few subcentimeter mediastinal nodes are also seen. No definite axillary or right hilar lymphadenopathy is noted. Visualized upper abdominal viscera appear. Visualized thoracic spine, regional osseous structures and surrounding soft tissues are intact. IMPRESSION: Negative CT study for pulmonary embolism. Moderate right-sided effusion noted with adjacent subsegmental atelectasis. There is 3 mm soft tissue density nodule is noted in the lateral segment of right lung middle lobe (image #26 series 3)- Lung-RADS 2. Redemonstration of mild to moderate pericardial effusion noted. Rest of the details as above. Electronically Signed by: Genet Rojo MD. (08/12/2022 19:21:14 [place] [facility]URNER)
[2022-08-12] MEDS ORDERED: Keppra 250 MG PO ONE (21:46)
[2022-08-12] MEDS ORDERED: TOPIRAMATE PO ONE (21:48)
[2022-08-12 22:04] VITALS: BP 106/70; PULSE 98
[2022-08-12 22:18] VITALS: O2SAT 94
[2022-08-12] MEDS ORDERED: MORPHINE SULFATE 4 MG INJ ONE (22:31)
== END 2022-08-12 22:50 | disposition short-term general hospital (02) ==
LOC: ED 14:39
DX: I31.39 Other pericardial effusion (noninflammatory) (principal); R77.8 Other specified abnormalities of plasma proteins; R07.9 Chest pain, unspecified; J90 Pleural effusion, not elsewhere classified; R06.00 Dyspnea, unspecified; Z79.899 Other long term (current) drug therapy
CPT/HCPCS: 36000; 36415; 71045; 71260; 80053; 83735; 83880; 84484; 85025; 85379; 85610; 85730; 93005; 96374; 96375; 96376; 99285; 99291; J2270; J2405; A9270-GY